=== PATIENT | female | born 1995 | race Caucasian/White ===

== ENCOUNTER 2017-02-21 11:50 | Emergency (ER) | payer OTHER ==
[~2017-02-21] VITALS: Ht 177.8 cm; Wt 140.0 kg
[2017-02-21 11:59] VITALS: TEMP 36.8; Ht 177.8 cm; Wt 140.0 kg
--- NOTE | 2017-02-21 12:28 | EMERGENCY ROOM VISIT NOTE ---
History Report prepared by Mark: Whitney Newman Under the Supervision of: Arpit LambertO. First contact with patient: 11:47 Chief Complaint: SEIZURE Stated Complaint: Seizures Nursing Triage Summary: Seizures Tuesday, yesterday, today. Approximately 5 today with a ground level fall. Bumped head on Tuesday as well. No seizure witnessed by EMS during care. History of Present Illness The patient is a 21 year old female who presents to the Emergency Room with complaints of an episode of a seizure occurring [employer]ODUCT [employer]. The patient is currently in the [facility]. She had a seizure today that was witnessed by staff. They note that it was a generalized seizure that lasted for about 1-2 minutes. When EMS arrived, the patient was post-ictal but starting to answer questions. She had no aura or prodromal symptoms prior to her seizure. No known triggers for her seizures. The patient has a history of seizures and is currently taking two seizure medications. There was discussion of also adding Keppra. She is unsure if there is a family history of seizures. According to staff, the patient has been having seizures for the past 2 days. The patient denies any recent illness and any current pain. She has a small contusion on her forehead from where she hit her head 2 days ago. Pt denies headache, change in vision, fevers, chest pain, shortness of breath, nausea, vomiting, diarrhea, pain with urination, and melena. Source of History: patient, EMS, other ([facility] staff) Onset: PRODUCT HANDLER Position: other (global) Quality: other (seizure) Timing: other (episode) Modifying Factors (Relieving): other (time) Associated Symptoms: No fevers, No headache, No chest pain, No SOB, No nausea, No vomiting, No melena, No diarrhea, No urinary symptoms Review of Systems See HPI for pertinent positives & negatives. A total of 10 systems reviewed and were otherwise negative. Past Medical & Surgical Medical Problems: (1) Seizure disorder Family History No pertinent history stated. Social History Smoking Status: Never Smoker Housing Status: other ([facility]) Current/Historical Medications Scheduled Divalproex Sodium (Depakote Er), 500 MG PO BID Divalproex Sodium (Depakote Delay Rel), 250 MG PO DAILY Fluoxetine (Prozac), 40 MG PO QPM Levetiracetam (Keppra), 1 TAB PO BID Lisinopril (Lisinopril), 5 MG PO DAILY Propranolol (Inderal), 10 MG PO TID Topiramate (Topiramate ER), 200 MG PO BID Scheduled PRN Acetaminophen Tab (Tylenol), 650 MG PO BID PRN for Pain Miscellaneous Medications Bacitracin (Topical) (Bacitracin) Allergies Coded Allergies: No Known Allergies (Unverified , 02/21/17) Physical Exam Vital Signs Date Time Temp Pulse Resp B/P (MAP) Pulse Ox O2 Delivery O2 Flow Rate FiO2 02/21/17 18:56 111 12 131/109 97 02/21/17 18:32 82 12 144/88 96 Room Air 02/21/17 18:06 85 99 02/21/17 18:01 157/87 02/21/17 17:36 81 17 100 02/21/17 17:31 87 15 140/89 99 02/21/17 17:06 84 24 100 02/21/17 17:01 155/90 02/21/17 16:36 79 16 99 02/21/17 16:31 155/82 02/21/17 16:22 83 02/21/17 16:06 83 13 100 02/21/17 16:01 140/75 02/21/17 15:50 80 16 100 02/21/17 15:31 111/84 02/21/17 15:30 75 16 111/84 98 Room Air 02/21/17 15:20 85 16 100 02/21/17 15:05 77 18 122/82 97 Room Air 02/21/17 15:01 122/82 02/21/17 14:50 84 19 97 02/21/17 14:47 98 Room Air 02/21/17 14:43 144/84 02/21/17 14:35 84 18 144/84 100 Room Air 02/21/17 13:50 79 18 100 02/21/17 13:20 84 19 99 02/21/17 13:02 137/75 02/21/17 12:20 83 12 100 02/21/17 12:13 90 02/21/17 11:59 36.8 85 19 136/72 98 Room Air 02/21/17 11:55 136/72 Physical Exam GENERAL: alert, well appearing, well nourished, no distress, non-toxic, obese HEAD: Small area of swelling central forehead, no ecchymosis. EYE EXAM: normal conjunctiva, PERRL and EOM's grossly intact OROPHARYNX: no exudate, no erythema, lips, buccal mucosa, and tongue normal and mucous membranes are moist, no contusion to tongue NECK: supple, no nuchal rigidity, no adenopathy, non-tender LUNGS: Clear to auscultation. Normal chest wall mechanics HEART: no murmurs, S1 normal and S2 normal ABDOMEN: abdomen soft, non-tender, normo-active bowel sounds, no masses, no rebound or guarding. BACK: Back is symmetrical on inspection and there is no deformity, no midline tenderness, no CVA tenderness. SKIN: no rashes and no bruising UPPER EXTREMITIES: Bilateral upper extremities with well-healed scars consistent with self-inflicted cutting. LOWER EXTREMITIES: No pitting edema. NEURO EXAM: Normal sensorium, cranial nerves II-XII [grossly] intact, normal speech, no [gross] weakness of arms, no [gross] weakness of legs. [No drift. Finger to nose intact. Gross sensation intact.] Medical Decision & Procedures ER Provider Diagnostic Interpretation: Radiology results have been interpreted by the radiologist and reviewed by me. HEAD CT NONCONTRAST CT DOSE: 1577.26 mGycm HISTORY: Seizure chi, seizure TECHNIQUE: Multiaxial CT images of the head were performed without the use of intravenous contrast. Comparison: None. Findings: The study is near nondiagnostic due to patient motion. Severe motion artifact is present on all images despite attempted rescan. No evidence for acute intracranial hemorrhage. No major midline shift. Impression: Nondiagnostic scan as the patient could not remain motionless for the study. No evidence for intracranial hemorrhage. Additional detail is not possible again due to patient motion. Study should be repeated when the patient is able Electronically signed by: Elliott Rivas M.D. 02/21/2017 1:02 PM Dictated Date/Time: 02/21/2017 1:00 PM CHEST ONE VIEW PORTABLE CLINICAL HISTORY: seizure, vomited COMPARISON STUDY: No previous studies for comparison. FINDINGS: The bones soft tissues and hemidiaphragms are normal. The cardiomediastinal silhouette is normal. The lungs are clear. The pulmonary vasculature is normal. IMPRESSION: Negative chest. Electronically signed by: Elliott Rivas M.D. 02/21/2017 12:36 PM Dictated Date/Time: 02/21/2017 12:35 PM Laboratory Results 02/21/17 13:25 Red Blood Count 5.11, Mean Corpuscular Volume 78.3, Mean Corpuscular Hemoglobin 24.5, Mean Corpuscular Hemoglobin Concent 31.3, Mean Platelet Volume 8.7, Neutrophils (%) (Auto) 74.4, Lymphocytes (%) (Auto) 18.6, Monocytes (%) (Auto) 6.1, Eosinophils (%) (Auto) 0.5, Basophils (%) (Auto) 0.2, Neutrophils # (Auto) 6.29, Lymphocytes # (Auto) 1.57, Monocytes # (Auto) 0.52, Eosinophils # (Auto) 0.04, Basophils # (Auto) 0.02 02/21/17 13:25 Test 02/21/17 12:19 02/21/17 13:25 02/21/17 14:40 Bedside Glucose 103 mg/dl (70-90) White Blood Count 8.46 K/uL (4.8-10.8) Red Blood Count 5.11 M/uL (4.2-5.4) Hemoglobin 12.5 g/dL (12.0-16.0) Hematocrit 40.0 % (37-47) Mean Corpuscular Volume 78.3 fL (80-100) Mean Corpuscular Hemoglobin 24.5 pg (25-34) Mean Corpuscular Hemoglobin Concent 31.3 g/dl (32-36) Platelet Count 364 K/uL (130-400) Mean Platelet Volume 8.7 fL (7.4-10.4) Neutrophils (%) (Auto) 74.4 % Lymphocytes (%) (Auto) 18.6 % Monocytes (%) (Auto) 6.1 % Eosinophils (%) (Auto) 0.5 % Basophils (%) (Auto) 0.2 % Neutrophils # (Auto) 6.29 K/uL (1.4-6.5) Lymphocytes # (Auto) 1.57 K/uL (1.2-3.4) Monocytes # (Auto) 0.52 K/uL (0.11-0.59) Eosinophils # (Auto) 0.04 K/uL (0-0.5) Basophils # (Auto) 0.02 K/uL (0-0.2) RDW Standard Deviation 43.1 fL (36.4-46.3) RDW Coefficient of Variation 15.0 % (11.5-14.5) Immature Granulocyte % (Auto) 0.2 % Immature Granulocyte # (Auto) 0.02 K/uL (0.00-0.02) Anion Gap 14.0 mmol/L (3-11) Est Creatinine Clear Calc Drug Dose 142.4 ml/min Estimated GFR () 98.5 Estimated GFR (Non- 85.0 BUN/Creatinine Ratio 14.7 (10-20) Calcium Level 9.0 mg/dl (8.5-10.1) Magnesium Level 2.3 mg/dl (1.8-2.4) Total Bilirubin 0.3 mg/dl (0.2-1) Aspartate Amino Transf (AST/SGOT) 31 U/L (15-37) Alanine Aminotransferase (ALT/SGPT) 71 U/L (12-78) Alkaline Phosphatase 92 U/L (45-117) Total Protein 8.0 gm/dl (6.4-8.2) Albumin 3.8 gm/dl (3.4-5.0) Globulin 4.2 gm/dl (2.5-4.0) Albumin/Globulin Ratio 0.9 (0.9-2) Human Chorionic Gonadotropin, Quant < 1 mIU/mL Valproic Acid (Depakene) Level 89 mcg/ml (50-100) Urine Color DK YELLOW Urine Appearance TURBID (CLEAR) Urine pH 8.0 (4.5-7.5) Urine Specific [place] 1.031 (1.000-1.030) Urine Protein NEG (NEG) Urine Glucose (UA) NEG (NEG) Urine Ketones 1+ (NEG) Urine Occult Blood 3+ (NEG) Urine Nitrite NEG (NEG) Urine Bilirubin NEG (NEG) Urine Urobilinogen NEG (NEG) Urine Leukocyte Esterase NEG (NEG) Urine WBC (Auto) 1-5 /hpf (0-5) Urine RBC (Auto) >30 /hpf (0-4) Urine Hyaline Casts (Auto) 1-5 /lpf (0-5) Urine Epithelial Cells (Auto) >30 /lpf (0-5) Urine Bacteria (Auto) 4+ (NEG) Laboratory results per my review. Medications Administered Medications (Trade) Dose Ordered Sig/David Route Start Time Stop Time Status Last Admin Dose Admin Lorazepam (Ativan Inj) 1 mg NOW STAT IV 02/21/17 13:04 02/21/17 13:05 DC 02/21/17 13:17 1 MG Levetiracetam 1000 mg/Dextrose 110 ml @ 440 mls/hr ONE ONCE IV 02/21/17 16:45 02/21/17 16:59 DC 02/21/17 17:30 440 MLS/HR ECG Indication: other (seizure) Rate (beats per minute): 85 Rhythm: normal sinus Findings: no acute ischemic change, other (normal axis, normal intervals) ED Course 1147: The patient was evaluated in room A9B. A complete history and physical exam was performed. 1302: I was called to the room. The patient had a seizure in CT scan and had seizure-like activity when she was brought back to her room. 1304: Lorazepam 1 mg IV 1431: The patient was being helped to the bathroom and began to have a seizure. She was lowered to the ground by staff - no trauma. This lasted for about 30 seconds. The patient was post-ictal for several minutes and then began to arouse again. 1525: I tried to contact the [facility] for the second time. 1540: I reassessed the patient at this time. She is doing fine and has had no recurrent seizures. 1542: I spoke with the [facility] regarding the patient's seizure history. Staff states that the patient's last seizure was at the beginning of January after they tried to wean her off of her Topamax. She stayed on this medication and had no problems since. She has previously refused to take her medications. 1606: At this time I spoke with the [facility] nurse at the [facility]. We discussed the patient's case and she is going to call the on-call doctor and discuss Keppra. The nurse states that the patient has not been refusing her medications. They are suspicious that the seizures are stress-induced because they have occurred on multiple occasions after she has met with her counselor. 1630: Funmilayo, the [facility] nurse called back. She states that the doctor is okay with starting Keppra and they will schedule follow-up with a neurologist. 1645: Levetiracetam 1000 mg/Dextrose 110 ml @ 440 mls/hr IV 1820: I reassessed the patient at this time. She is feeling better and resting comfortably. I discussed the results and treatment plan with the patient. I answered all pertaining questions that she had. She expressed understanding and verbalized agreement. The patient will be discharged back to the [facility]. Medical Decision Differential diagnosis includes etiologies such as infection, hypoglycemia, electrolyte abnormalities, cardiac sources, intracerebral event, trauma, toxicologic, neurologic, as well as others were entertained. Medication Reconciliation: I attest that I have personally reviewed the patient' s current medication list. Blood pressure screening: Patient was found to have a slightly elevated blood pressure due to circumstances. I do not believe that the patient requires hypertension monitoring. Patient with known seizure history, although recent events leading to increased stress likely contribute into seizures. Question possible pseudoseizures also. No history, symptoms, lab findings to suggest meningitis/encephalitis, no evidence of intracranial hemorrhage, patient with normal and nonfocal neuro exam , doubt CVA, no prior history of close head injury. No other abnormalities noted, and Depakote level within normal range. After several discussions with [facility] regarding seizures while she was in their care, as well as [facility], decision made to add an additional anticonvulsant agent. The physician at the [facility] was comfortable with the initiation of this, and will follow-up the patient and they will arrange outpatient neurology evaluation. Discussion with ED pharmacist regarding safest anticonvulsant, and I agree Keppra is likely the best choice in this circumstance. Patient's other labs are reassuring. Patient did have one recurrent seizure noted in the emergency room, was being helped into the bathroom by staff, when she began to seize, staff carefully lowered her to the ground, avoiding any additional traumatic injury. Seizure resolved within 30 seconds, was generalized in nature, patient was briefly postictal and return to normal baseline. Did not feel patient required ICU admission for status epilepticus or continuous EEG monitoring. No evidence of acute infectious process. Hematuria noted likely contaminant from menstrual cycle. Patient monitored her for several hours, including time after the initiation of IV Keppra. Patient with no other abnormalities, stable vital signs throughout. Mild hypertension noted, doubt seizures related to hypertensive emergency or hypertensive encephalopathy. Consults Time Called: 1430 Consulting Physician: Staff at the [facility] Returned Call: 1542 I spoke with the [facility] regarding the patient's seizure history. Staff states that the patient's last seizure was at the beginning of January after they tried to wean her off of her Topamax. She stayed on this medication and had no problems since. She has previously refused to take her medications. Additional Consults: Time Called: 1539 Consulted Physician: [facility] nurse Returned Call: 1606 Additional Comments: At this time I spoke with the [facility] nurse, Funmilayo, at the [facility]. We discussed the patient's case and she is going to call the on-call doctor and discuss Keppra. The nurse states that the patient has not been refusing her medications. They are suspicious that the seizures are stress-induced because they have occurred on multiple occasions after she has met with her counselor. Time Called: 1630 Consulted Physician: Funmilayo - [facility] nurse Returned Call: 1630 Additional Comments: Funmilayo, the [facility] nurse called back. She states that the doctor is okay with starting Keppra and they will schedule follow-up with a neurologist. Impression Primary Impression: Recurrent seizures Critical Care I have personally spent 45 minutes of critical care time in the direct management of this patient. This includes bedside care, interpretation of diagnostic studies, and testing, discussion with consultants, patient, and family members, and other required patient management activities. This 45 minutes is in excess of all separately billable procedures. Scribe Attestation The scribe's documentation has been prepared under my direction and personally reviewed by me in its entirety. I confirm that the note above accurately reflects all work, treatment, procedures, and medical decision making performed by me. Departure Information Dispostion Home / Self-Care Prescriptions Levetiracetam (KEPPRA) 500 Mg Tab 1 TAB PO BID for 30 Days, #60 TAB 5 Refills Prov: Melissa Martinez DO 02/21/17 Referrals [facility] (PCP) Forms HOME CARE DOCUMENTATION FORM, IMPORTANT VISIT INFORMATION Patient Instructions My [facility] Additional Instructions Please continue taking your regular seizure medications as prescribed. Please begin taking the Keppra also. Please take the Keppra twice a day as prescribed. Please follow up with neurology regarding the recurrence of her seizures and possible need for additional testing or adjustment of medications. Please eat and drink regularly. If you develop any recurrent seizures, follow -up fevers, vomiting, vision changes, dizziness, or have any other new or concerning symptoms, please return to the emergency room.
[2017-02-21] MEDS ORDERED: BACI1POW (12:29)
[2017-02-21] MEDS ORDERED: TOPI1CAP20 PO (12:29)
[2017-02-21] MEDS ORDERED: DIVA250T PO (12:29)
--- NOTE | 2017-02-21 12:37 | DIAGNOSTIC IMAGING REPORT ---
CHEST ONE VIEW PORTABLE CLINICAL HISTORY: seizure, vomited COMPARISON STUDY: No previous studies for comparison. FINDINGS: The bones soft tissues and hemidiaphragms are normal. The cardiomediastinal silhouette is normal. The lungs are clear. The pulmonary vasculature is normal. IMPRESSION: Negative chest. Electronically signed by: Elliott Rivas M.D. 02/21/2017 12:36 PM Dictated Date/Time: 02/21/2017 12:35 PM
--- NOTE | 2017-02-21 13:03 | DIAGNOSTIC IMAGING REPORT ---
HEAD CT NONCONTRAST CT DOSE: 1577.26 mGycm HISTORY: Seizure chi, seizure TECHNIQUE: Multiaxial CT images of the head were performed without the use of intravenous contrast. Comparison: None. Findings: The study is near nondiagnostic due to patient motion. Severe motion artifact is present on all images despite attempted rescan. No evidence for acute intracranial hemorrhage. No major midline shift. Impression: Nondiagnostic scan as the patient could not remain motionless for the study. No evidence for intracranial hemorrhage. Additional detail is not possible again due to patient motion. Study should be repeated when the patient is able Electronically signed by: Elliott Rivas M.D. 02/21/2017 1:02 PM Dictated Date/Time: 02/21/2017 1:00 PM
[2017-02-21] MEDS ORDERED: LORAZEPAM 2 MG/ML 1 ML VIAL IV STA (13:04)
[2017-02-21 13:44] LABS: BASO % 0.2 %; BASO ABS # 0.02 K/uL (0-0.2); COMPLETE YES; EOS % 0.5 %; IG% 0.2 %; LYMPH % 18.6 %; LYMPH ABS # 1.57 K/uL (1.2-3.4); MEAN CELL VOLUME 78.3 fL (80-100); MEAN CORPUSCULAR HEMOGLOBIN 24.5 pg (25-34); MEAN CORPUSCULAR HGB CONC 31.3 g/dl (32-36); MEAN PLATELET VOLUME 8.7 fL (7.4-10.4); MONO % 6.1 %; NEUT % 74.4 %; PLATELET COUNT 364 K/uL (130-400); RED BLOOD COUNT 5.11 M/uL (4.2-5.4); WHITE BLOOD COUNT 8.46 K/uL (4.8-10.8)
[2017-02-21 13:57] LABS: BUN/CREATININE RATIO 14.7 (10-20); CREATININE 0.95 mg/dl (0.60-1.20); MAGNESIUM 2.3 mg/dl (1.8-2.4); POTASSIUM 3.8 mmol/L (3.5-5.1)
[2017-02-21 14:00] LABS: ALB/GLOB RATIO 0.9 (0.9-2)
[2017-02-21 14:47] VITALS: O2SAT 98
[2017-02-21 14:56] LABS: URINE APPEARANCE TURBID (CLEAR); URINE BILIRUBIN NEG (NEG); URINE COLOR DK YELLOW; URINE EPITHELIAL CELL AUTO >30 /lpf (0-5); URINE NITRITE NEG (NEG); URINE SPECIFIC GRAVITY 1.031 (1.000-1.030); UROBILINOGEN NEG (NEG); ZZUR CULT IF INDIC CLEAN CATCH YES
[2017-02-21 15:08] LABS: MANUAL MICROSCOPIC REQUIRED? NO; REVIEW REQ? NO; SULFASALICYLIC ACID NEG (NEG)
[2017-02-21] MEDS ORDERED: LEVETIRACETAM IV 1,000 MG in DEXTROSE 5% 100ML 100 ML IV ONE (16:45)
[2017-02-21] MEDS ORDERED: LEVE500T13 PO (18:48)
[2017-02-21 18:56] VITALS: BP 131/109; PULSE 111; O2SAT 97
[2017-03-06] MEDS ORDERED: DIVA500T5 PO (09:27)
[2017-03-06] MEDS ORDERED: LEVE500T13 PO (11:33)
[2017-03-06] MEDS ORDERED: TOPI200T14 PO (11:34)
[2017-03-06] MEDS ORDERED: MIRT15TA PO (11:36)
[2017-03-06] MEDS ORDERED: ACET325T96 PO (12:29)
[2017-03-06] MEDS ORDERED: LSN5 PO (12:29)
[2017-03-06] MEDS ORDERED: DIVA250T4 PO (12:29)
[2017-03-06] MEDS ORDERED: PROP10TA7 PO (12:29)
[2017-03-06] MEDS ORDERED: FLUO40CA8 PO (12:29)
[2017-03-06] MEDS ORDERED: SULF800T23 PO (19:08)
== END 2017-02-21 18:57 | disposition home or self-care (01) ==
LOC: C.EDA 11:56
DX: G40.909 Epilepsy, unspecified, not intractable, without status epilepticus (principal)

== ENCOUNTER 2017-02-22 11:10 | Inpatient (IN) | payer OTHER ==
[~2017-02-22] VITALS: Ht 177.8 cm; Wt 138.2 kg
[~2017-02-22 11:10] MED LIST: BACI1POW; DIVA250T PO; LEVE500T13 PO; TOPI1CAP20 PO
[2017-02-22 12:07] LABS: BASO % 0.1 %; BASO ABS # 0.01 K/uL (0-0.2); COMPLETE YES; EOS % 0.8 %; HEMATOCRIT 38.8 % (37-47); IG% 0.3 %; LYMPH ABS # 1.95 K/uL (1.2-3.4); MEAN CELL VOLUME 80.3 fL (80-100); MEAN CORPUSCULAR HEMOGLOBIN 25.5 pg (25-34); MEAN CORPUSCULAR HGB CONC 31.7 g/dl (32-36); MEAN PLATELET VOLUME 9.1 fL (7.4-10.4); MONO % 9.6 %; NEUT % 63.2 %; PLATELET COUNT 321 K/uL (130-400); RED BLOOD COUNT 4.83 M/uL (4.2-5.4)
[2017-02-22 12:17] LABS: INR 1.1 (0.9-1.1); PROTHROMBIN TIME (PATIENT) 11.5 SECONDS (9.0-12.0)
[2017-02-22 12:25] LABS: BUN/CREATININE RATIO 16.6 (10-20); CALCIUM 8.4 mg/dl (8.5-10.1); CREATININE 0.81 mg/dl (0.60-1.20); MAGNESIUM 2.3 mg/dl (1.8-2.4); POTASSIUM 3.5 mmol/L (3.5-5.1)
[2017-02-22] MEDS ORDERED: LORAZEPAM 2 MG/ML 1 ML VIAL ONE (12:29)
[2017-02-22] MEDS ORDERED: LORAZEPAM 2 MG/ML 1 ML VIAL IV STA (12:34)
[2017-02-22 12:36] LABS: PHOSPHORUS 2.4 mg/dl (2.5-4.9); THYROID STIMULATING HORMONE 0.367 uIu/ml (0.300-4.500)
--- NOTE | 2017-02-22 12:37 | DIAGNOSTIC IMAGING REPORT ---
HEAD CT NONCONTRAST CT DOSE: HISTORY: Trauma. Mental status change. fall, chi, seizure TECHNIQUE: Multiaxial CT images of the head were performed without the use of intravenous contrast. Comparison: 02/21/2017 Findings: The paranasal sinuses and mastoid air cells are clear. The calvarium and skull base are intact. The ventricles and sulci are within normal limits. There is no mass, hematoma, midline shift, or acute infarct. Impression: No acute intracranial abnormality. Electronically signed by: Elliott Rivas M.D. 02/22/2017 12:35 PM Dictated Date/Time: 02/22/2017 12:33 PM
--- NOTE | 2017-02-22 12:40 | DIAGNOSTIC IMAGING REPORT ---
CERVICAL SPINE CT CT DOSE: 1311.49 mGy.cm HISTORY: fall, loc, seizure TECHNIQUE: Multiaxial CT images of the cervical spine were performed and reformatted in the sagittal and coronal plane without the use of contrast. COMPARISON: None. FINDINGS: No fractures. No subluxation. Prevertebral soft tissues and the C1-C2 interval are intact. No pneumothorax. IMPRESSION: No fractures within the cervical spine. Electronically signed by: Elliott Rivas M.D. 02/22/2017 12:39 PM Dictated Date/Time: 02/22/2017 12:37 PM
[2017-02-22] MEDS ORDERED: LEVETIRACETAM IV 1,000 MG in DEXTROSE 5% 100ML 100 ML IV ONE (12:45)
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
[2017-02-22] MEDS ORDERED: NITROGLYCERIN 0.4 MG SL PER TAB CHARGE SL PRN (15:00)
[2017-02-22] MEDS ORDERED: ONDANSETRON INJ 2 MG/ML 2 ML VIAL IV PRN (15:00)
[2017-02-22] MEDS ORDERED: MAGNESIUM HYDROXIDE SUSP 30 ML UDC PO PRN (15:00)
[2017-02-22] MEDS ORDERED: ALUMINUM/MAGNESIUM/SIMETH (MAALOX MAX) 30 ML UDC PO PRN (15:00)
[2017-02-22] MEDS ORDERED: POLYETHYLENE (MIRALAX) 17 GM PACK PO PRN (15:00)
[2017-02-22 15:20] VITALS: BP 123/78; PULSE 79; TEMP 36.6; O2SAT 99; Ht 177.8 cm; Wt 138.2 kg
[2017-02-22 15:30] LABS: MANUAL MICROSCOPIC REQUIRED? NO; REVIEW REQ? YES; URINE APPEARANCE TURBID (CLEAR); URINE BILIRUBIN NEG (NEG); URINE COLOR YELLOW; URINE EPITHELIAL CELL AUTO >30 /lpf (0-5); URINE NITRITE NEG (NEG); URINE PH 8.5 (4.5-7.5); URINE SPECIFIC GRAVITY 1.027 (1.000-1.030); UROBILINOGEN NEG (NEG)
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
[2017-02-22 15:36] LABS: SULFASALICYLIC ACID NEG (NEG)
[2017-02-22 20:58] VITALS: BP 132/90; PULSE 96; TEMP 36.9; O2SAT 96
[2017-02-22] MEDS ORDERED: DIVALPROEX 250 MG EXTENDED REL TAB PO SCH (21:00)
[2017-02-22] MEDS ORDERED: LEVETIRACETAM 500 MG TAB PO SCH (21:00)
[2017-02-22] MEDS ORDERED: NURSING VERBAL MED ORDER STA (21:29)
[2017-02-22] MEDS ORDERED: LEVETIRACTAM 500 MG in DEXTROSE 5% 100ML IV STA (21:37)
[2017-02-22 21:42] VITALS: BP 145/79; PULSE 108; O2SAT 100
[2017-02-22 22:02] VITALS: BP 93/69; PULSE 82; O2SAT 99
[2017-02-22] MEDS: PROPRANOLOL HCL 10 MG TAB PO SCH (22:19)
[2017-02-22] MEDS: FLUOXETINE HCL 20 MG CAP PO SCH (22:20)
[2017-02-22] MEDS: TOPIRAMATE 100 MG TAB PO SCH (22:21)
[2017-02-22] MEDS: MIRTAZAPINE TAB 15 MG TAB PO SCH (22:21)
[2017-02-22 23:44] VITALS: BP 109/90; PULSE 86; O2SAT 99
[2017-02-23] VITALS (10 sets, daily range): BP systolic 127–142; BP diastolic 62–98; PULSE 78–103; TEMP 36.7–37.2; O2SAT 99–100
[2017-02-23] MEDS ORDERED: VALPROATE SOD IV 500 MG in DEXTROSE 5% 50ML 50 ML IV ONE (00:03)
[2017-02-23] MEDS: ENOXAPARIN 40 MG/0.4 ML SYR SC SCH ×2 (00:09→23:25)
[2017-02-23] MEDS ORDERED: LORAZEPAM 2 MG/ML 1 ML VIAL ONE (00:24)
[2017-02-23 06:18] LABS: BUN/CREATININE RATIO 18.5 (10-20); CALCIUM 8.7 mg/dl (8.5-10.1); CREATININE 0.66 mg/dl (0.60-1.20)
[2017-02-23] MEDS: LORAZEPAM 2 MG/ML 1 ML VIAL IV PRN ×5 (06:20→19:41)
[2017-02-23] MEDS: VALPROATE SOD IV 500 MG in DEXTROSE 5% 50ML 50 ML IV SCH ×2 (07:29→19:43)
[2017-02-23] MEDS: LISINOPRIL 5 MG TAB PO SCH (07:31)
[2017-02-23] MEDS: PROPRANOLOL HCL 10 MG TAB PO SCH ×3 (07:32→23:50)
[2017-02-23] MEDS: TOPIRAMATE 100 MG TAB PO SCH ×2 (07:33→23:50)
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
[2017-02-23] MEDS ORDERED: LEVETIRACTAM 500 MG in DEXTROSE 5% 100ML IV SCH (09:00)
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
[2017-02-23] MEDS: DIVALPROEX SODIUM 250 MG DELAY REL TAB PO SCH (12:37)
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
[2017-02-23] MEDS: LEVETIRACETAM IV 1,000 MG in DEXTROSE 5% 100ML 100 ML IV SCH (19:43)
[2017-02-23] MEDS: FLUOXETINE HCL 20 MG CAP PO SCH (23:50)
[2017-02-23] MEDS: MIRTAZAPINE TAB 15 MG TAB PO SCH (23:50)
[2017-02-24] VITALS (7 sets, daily range): BP systolic 116–129; BP diastolic 63–74; PULSE 85–96; TEMP 36.6–37.1; O2SAT 98–100
--- NOTE | 2017-02-24 07:06 | Family Medicine Progress Note ---
Progress Note Date of Service Feb 24, 2017. Subjective Pt evaluation today including: conversation w/ patient, physical exam, chart review, lab review Pt was seen and examined at bedside. Pt had an event of nonresponsiveness at approximately 9am with right arm shaking that lasted for approximately two minutes that self resolved. Ativan was not given. No aspiration was noted. No vomiting was noted. Extremities are not stiff during these episodes. There is a post ictal state lasting approximately 30 minutes where the pt is not answering questions. Pt is more sedated at her baseline than her previous day. ROS: Pt states that she is pain in her feet, entire body and teeth. Complete ROS is unable to be obtained due to patient being sedated. pt does not appear in any pain. Objective Physical Exam General Appearance: WD/WN, + obese Respiratory/Chest: chest non-tender, lungs clear, normal breath sounds, no respiratory distress, no accessory muscle use Cardiovascular: regular rate, rhythm, no edema, no gallop, no JVD, no murmur Extremities: non-tender, normal inspection, no pedal edema, no calf tenderness Neurologic/Psychiatric: no motor/sensory deficits, alert, oriented x 3, + pertinent finding (pt appears sedated) Assessment and Plan 21F with PMHx of seizure disorder, HTN, and depression, who presented to the ED from [facility] with complaints of seizure-like activity over the last couple of days. Pt seized several times in the hospital and was given Ativan. Keppra was doubled to 1000 IV BID, Depakote was increased to 500mg BID and Topamax was maintained at 200mg BID. Pt has continued to have seizures or pseudoseizures here and has refused EEG monitoring. Will retry after 24hours and if continues to seize then will consider upgrading to tertiary care facility. Seizure-like activity, pseudoseizure vs seizure disorder: - Tele showed sinus rhythm in the 130s. Afebrile. No WBC. TSH normal. CT head unremarkable. - Seizure precautions. - c/w Depakote IV 500 mg BID, Keppra IV 1000 mg BID, Topamax 200 mg BID - Valproic acid checked on - Neurology consulted, appreciate recommendations --Will retry for routine EEG. - If this patient continues to exhibit seizure-like activity then I would recommend transfer to a tertiary center for prolonged EEG monitoring and comprehensive neuro critical care services. - Follow up with brain MRI Anxiety/depression w/ suicidal attempt in the last 24-hours: - Suicidal watch - Continue Prozac 40 mg HS, Remeron 15 mg HS, Propranolol 10 mg TID - Psych on board. HTN: Continue Lisinopril 5 mg daily GI Prophylaxis: Maalox PRN, IV Zofran PRN, Colace and/or Milk of Mag PRN DVT prophylaxis: Lovenox 40 mg SQ q24 hrs, SIDNEY and SCDs Code Status: Full Code Dispo: From [facility] Resident Physician Supervision Note: I interviewed and examined the patient. Discussed with Dr. Rivers and agree with findings and plan as documented in the note. Any exceptions or clarifications are listed here: None Documented By: Cong Finney no meaningful HPI or ROS obtainable. had a few episodes earlier - some self resolved. d/w psych extensively and input greatly appreciated. neuro sugggested ?could we do continuous EEG here due to getting equipment for code [place]ctic (as opposed to the stress and starting over ih rapport of having to transfer her to a facility with EEG/video monitoring) -- unfortunately training not yet ready for full use of equipment so not able to be done. vitals noted nad breathing unlabored no pallor or icterus seizure like activity - seeming more and more to be pseudoseizures, but with overall clinical situation would be beneficial to "prove" rather than just empirically treat. ?transfer to tertiary vs try to arrange as outpt. will d/w group home doc and also discuss further w neuro. continue to monitor episodes and follow for now. fortunately no serious sequellae appear ongoing Resident Involvement: Resident Care Provided Care Provided: Adult Hospital Medicine
[2017-02-24 07:14] LABS: BUN/CREATININE RATIO 13.9 (10-20); CALCIUM 8.4 mg/dl (8.5-10.1); CREATININE 0.7 mg/dl (0.60-1.20); POTASSIUM 3.8 mmol/L (3.5-5.1)
[2017-02-24 07:20] LABS: HEMATOCRIT 41.1 % (37-47); MEAN CELL VOLUME 79.7 fL (80-100); MEAN CORPUSCULAR HGB CONC 31.4 g/dl (32-36); MEAN PLATELET VOLUME 9.3 fL (7.4-10.4); PLATELET COUNT 313 K/uL (130-400); RED BLOOD COUNT 5.16 M/uL (4.2-5.4); WHITE BLOOD COUNT 11.74 K/uL (4.8-10.8)
[2017-02-24] MEDS: LEVETIRACETAM IV 1,000 MG in DEXTROSE 5% 100ML 100 ML IV SCH ×2 (08:23→20:49)
[2017-02-24] MEDS: TOPIRAMATE 100 MG TAB PO SCH ×2 (08:25→20:42)
[2017-02-24] MEDS: LISINOPRIL 5 MG TAB PO SCH (08:25)
[2017-02-24] MEDS: VALPROATE SOD IV 500 MG in DEXTROSE 5% 50ML 50 ML IV SCH ×2 (08:25→20:49)
[2017-02-24] MEDS: PROPRANOLOL HCL 10 MG TAB PO SCH ×3 (08:26→20:42)
--- NOTE | 2017-02-24 09:55 | Neurology Progress Notes ---
Neurology Progress Note Date of Service Feb 24, 2017. Subjective Follow-up for seizures The patient is somnolent this morning it does not participate with my evaluation Nursing notes reviewed. The patient has exhibited at least 2 additional seizure- like episodes characterized by back arching, thrashing of the limbs, and movement of the head to and fro She has not answered questions by nursing staff this morning, apparently being difficult to arouse from sleep. She did receive multiple doses of lorazepam yesterday and last night. This patient's dosage of Keppra was increased to 1000 mg twice daily yesterday. Objective Date Time Temp Pulse Resp B/P (MAP) Pulse Ox O2 Delivery O2 Flow Rate FiO2 02/24/17 07:43 36.9 96 20 116/70 (85) 100 Room Air 02/24/17 06:12 117/68 (84) 02/24/17 04:00 Nasal Cannula 2.0 02/24/17 04:00 90 18 100 Nasal Cannula 2.0 02/24/17 00:00 Nasal Cannula 2.0 02/23/17 23:21 37.0 103 16 132/75 (94) 100 Nasal Cannula 2.0 02/23/17 20:00 Nasal Cannula 2.0 02/23/17 19:30 102 22 127/98 (108) 100 Nasal Cannula 2.0 02/23/17 19:13 37.2 92 18 133/77 (95) 99 Nasal Cannula 2.0 02/23/17 16:00 Nasal Cannula 2.0 02/23/17 15:15 36.8 87 19 130/62 (84) 99 Nasal Cannula 2.0 02/23/17 12:00 Nasal Cannula 2.0 02/23/17 11:39 36.7 80 22 140/81 (100) 100 Nasal Cannula 2.0 Last 24 Hours Test 02/23/17 10:30 02/23/17 12:33 02/24/17 06:10 Total Creatine Kinase 98 U/L Valproic Acid (Depakene) Level 81 mcg/ml White Blood Count 11.74 K/uL Red Blood Count 5.16 M/uL Hemoglobin 12.9 g/dL Hematocrit 41.1 % Mean Corpuscular Volume 79.7 fL Mean Corpuscular Hemoglobin 25.0 pg Mean Corpuscular Hemoglobin Concent 31.4 g/dl RDW Standard Deviation 44.6 fL RDW Coefficient of Variation 15.4 % Platelet Count 313 K/uL Mean Platelet Volume 9.3 fL Sodium Level 144 mmol/L Potassium Level 3.8 mmol/L Chloride Level 111 mmol/L Carbon Dioxide Level 23 mmol/L Anion Gap 10.0 mmol/L Blood Urea Nitrogen 10 mg/dl Creatinine 0.70 mg/dl Est Creatinine Clear Calc Drug Dose 192.3 ml/min Estimated GFR () 142.5 Estimated GFR (Non- 123.0 BUN/Creatinine Ratio 13.9 Random Glucose 76 mg/dl Calcium Level 8.4 mg/dl Exam: The patient is sonorous and difficult to arouse from sleep. She will not participate with examination. Current Inpatient Medications Medications (Trade) Dose Ordered Sig/David Route Start Time Stop Time Status Last Admin Dose Admin Enoxaparin Sodium (Lovenox Inj) 40 mg Q24H SC 02/22/17 21:00 03/24/17 20:59 02/23/17 23:25 40 MG Acetaminophen (Tylenol Tab) 650 mg Q4H PRN PO 02/22/17 15:00 03/24/17 14:59 Al Hydrox/Mg Hydrox/Simethicone (Maalox Max Susp) 15 ml Q4H PRN PO 02/22/17 15:00 03/24/17 14:59 Magnesium Hydroxide (Milk Of Magnesia Susp) 30 ml Q12H PRN PO 02/22/17 15:00 03/24/17 14:59 Ondansetron HCl (Zofran Inj) 4 mg Q6H PRN IV 02/22/17 15:00 03/24/17 14:59 Nitroglycerin (Nitrostat Tab) 0.4 mg UD PRN SL 02/22/17 15:00 03/24/17 14:59 Polyethylene (Miralax Powder Packet) 17 gm DAILY PRN PO 02/22/17 15:00 03/24/17 14:59 Divalproex Sodium (Depakote Delay Rel Tab) 250 mg DAILY@1200 PO 02/23/17 12:00 03/25/17 11:59 02/23/17 12:37 250 MG Divalproex Sodium (Depakote Extended Rel Tab) 500 mg BID PO 02/22/17 21:00 03/24/17 20:59 Future Hold Fluoxetine HCl (Prozac Cap) 40 mg QPM PO 02/22/17 21:00 03/24/17 20:59 02/23/17 23:50 40 MG Lisinopril (Zestril Tab) 5 mg DAILY PO 02/23/17 09:00 03/25/17 08:59 02/24/17 08:25 5 MG Mirtazapine (Remeron Tab) 15 mg HS PO 02/22/17 21:00 03/24/17 20:59 02/23/17 23:50 15 MG Propranolol HCl (Inderal Tab) 10 mg TID PO 02/22/17 21:00 03/24/17 20:59 02/24/17 08:26 10 MG Topiramate (Topamax Tab) 200 mg BID PO 02/22/17 21:00 03/24/17 20:59 02/24/17 08:25 200 MG Valproate Sodium 500 mg/Dextrose 55 ml @ 55 mls/hr BID IV 02/23/17 09:00 03/25/17 08:59 02/24/17 08:25 55 MLS/HR Lorazepam (Ativan Inj) 1 mg UD PRN IV 02/23/17 00:15 03/25/17 00:14 02/23/17 19:41 1 MG Levetiracetam 1000 mg/Dextrose 110 ml @ 420 mls/hr Q12 IV 02/23/17 21:00 03/25/17 08:59 02/24/17 08:23 420 MLS/HR Impression This patient continues to exhibit episodes that are highly suggestive of pseudoseizures based on the observed, documented behavior occurring during the events. Of course, I am unable to completely exclude a possible diagnosis of epilepsy in this patient. I do not think her current somnolence is related to the Keppra dosage increase yesterday. However, she has received multiple dosages of lorazepam over the past 24 hours which is probably a greater contributor to her current sedation. Plan We will attempt to obtain another electroencephalogram at bedside today. This patient became quite agitated yesterday with previous attempts at obtaining an EEG. Continue with Keppra 1000 g IV every 12 hours Continue with valproate 500 mg IV every 12 hours Follow up with brain MRI If this patient continues to exhibit seizure-like activity then I would recommend transfer to a tertiary center for continuous video EEG monitoring where a diagnosis of either pseudoseizures or epilepsy can be corroborated with greater certainty.
[2017-02-24] MEDS: DIVALPROEX SODIUM 250 MG DELAY REL TAB PO SCH (11:42)
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
[2017-02-24] MEDS: LORAZEPAM 2 MG/ML 1 ML VIAL IV PRN (15:32)
[2017-02-24] MEDS: FLUOXETINE HCL 20 MG CAP PO SCH (20:42)
[2017-02-24] MEDS: MIRTAZAPINE TAB 15 MG TAB PO SCH (20:42)
[2017-02-24] MEDS: ENOXAPARIN 40 MG/0.4 ML SYR SC SCH (20:50)
[2017-02-24] MEDS: ACETAMINOPHEN 325 MG TAB PO PRN (23:32)
[2017-02-25 05:00] VITALS: BP 131/67; PULSE 79; TEMP 37; O2SAT 100
[2017-02-25 05:47] LABS: HEMATOCRIT 39.4 % (37-47); MEAN CELL VOLUME 79.3 fL (80-100); MEAN CORPUSCULAR HEMOGLOBIN 24.5 pg (25-34); MEAN PLATELET VOLUME 9.1 fL (7.4-10.4); PLATELET COUNT 302 K/uL (130-400); RED BLOOD COUNT 4.97 M/uL (4.2-5.4); WHITE BLOOD COUNT 9.22 K/uL (4.8-10.8)
[2017-02-25 06:15] LABS: BUN/CREATININE RATIO 14.8 (10-20); CALCIUM 8.6 mg/dl (8.5-10.1); CREATININE 0.65 mg/dl (0.60-1.20); POTASSIUM 3.8 mmol/L (3.5-5.1)
--- NOTE | 2017-02-25 07:00 | Family Medicine Progress Note ---
Progress Note Date of Service Feb 25, 2017. Subjective Pt evaluation today including: conversation w/ patient, physical exam, chart review, lab review The patient was seen and examined at bedside. Pt didn't receive any Ativan overnight. Continues to have Seizures/Pseudo seizures today. Pt talks quietly. Is oriented to time person and place. When asked about pain pt points to head, chest and lower extremities. When asked to localize or describe the pain pt is unable to do so. Subjective exam takes an extended period of time because of slow verbalization. Plan of care was described to the patient and nursing staff and all questions were answered. Pt has a pseudolike seizure at approximately 10:30AM today. She was walking back from a stool and went limp. Several nurses were required to lift her. Pt was not responding to stimuli, eyes were not saccadic, pt has a watson and unable asses urinary incontinence during episode. ROS: Unable to obtain because pt is unable to hold long conversations. Objective Physical Exam General Appearance: WD/WN, + obese Neck: no JVD Respiratory/Chest: chest non-tender, lungs clear, normal breath sounds, no respiratory distress, no accessory muscle use Cardiovascular: regular rate, rhythm, no edema, no gallop, no JVD, no murmur Abdomen: normal bowel sounds, non tender, soft, no organomegaly, no pulsatile mass Extremities: normal range of motion, non-tender, normal inspection, no pedal edema, no calf tenderness Neurologic/Psychiatric: field handyman II-XII nml as tested, no motor/sensory deficits, alert, normal mood/affect, oriented x 3 Skin: no rash Assessment and Plan 21F with PMHx of seizure disorder, HTN, and depression, who presented to the ED from [facility] with complaints of seizure-like activity over the last couple of days. Pt seized several times in the hospital and was given Ativan. Keppra was doubled to 1000 IV BID, Depakote was increased to 500mg BID and Topamax was maintained at 200mg BID. Pt has continued to have seizures or pseudoseizures here and has refused EEG monitoring. Pt will need video EEG monitoring that we are not able to provide. We cannot obtain a regular EEG because pt refuses head gear. In present state pt is unsafe to transfer back to senior living. Seizure-like activity, pseudoseizure vs seizure disorder: - Tele showed sinus rhythm. Afebrile. No WBC. TSH normal. CT head unremarkable. - Seizure precautions. - c/w Depakote IV 500 mg BID, Keppra IV 1000 mg BID, Topamax 200 mg BID - Valproic acid checked on - Neurology - will need higher level of care to provide assessment. Anxiety/depression w/ suicidal attempt in the last 24-hours: - Suicidal watch - Continue Prozac 40 mg HS, Remeron 15 mg HS, Propranolol 10 mg TID - Psych on board. HTN: Continue Lisinopril 5 mg daily GI Prophylaxis: Maalox PRN, IV Zofran PRN, Colace and/or Milk of Mag PRN DVT prophylaxis: Lovenox 40 mg SQ q24 hrs, SIDNEY and SCDs Code Status: Full Code Dispo: From [facility] Resident Physician Supervision Note: I interviewed and examined the patient. Discussed with Dr. Morley and agree with findings and plan as documented in the note. Any exceptions or clarifications are listed here: None Documented By: Cong Finney no hpi or ros obtainable. senior living seems reticent to take her back as is. discussed with [facility] neuro - they're willing to take her for 24hr EEG monitoring, however it wouldn't be read until tuesday - therefore ideal timing will be to transfer tuesday so she can be monitored overnight then read EEG in AM then be able to confirm/refute dx. vitals noted nad breathing unlabored cta b/l no rrw good spontaneous effort. reg no r/m/g seizure like activity - more and more appearing c/w pseudoseizures. for 24hr eeg at [facility] - but not able to go until tuesday. until dx confirmed, seems too risky for otupatient w/u. otehrwise as above Resident Involvement: Resident Care Provided Care Provided: Adult Hospital Medicine
[2017-02-25 07:49] VITALS: BP 117/76; PULSE 92; TEMP 36.7; O2SAT 100
[2017-02-25] MEDS: TOPIRAMATE 100 MG TAB PO SCH ×2 (09:00→20:03)
[2017-02-25] MEDS: LISINOPRIL 5 MG TAB PO SCH (09:00)
[2017-02-25] MEDS: VALPROATE SOD IV 500 MG in DEXTROSE 5% 50ML 50 ML IV SCH ×2 (09:00→20:05)
[2017-02-25] MEDS: PROPRANOLOL HCL 10 MG TAB PO SCH ×3 (09:00→20:04)
[2017-02-25] MEDS: LEVETIRACETAM IV 1,000 MG in DEXTROSE 5% 100ML 100 ML IV SCH ×2 (10:45→20:05)
[2017-02-25 11:49] VITALS: BP 122/79; PULSE 89; TEMP 36.7; O2SAT 99
[2017-02-25 15:23] VITALS: BP 145/81; PULSE 83; TEMP 36.5; O2SAT 98
--- NOTE | 2017-02-25 16:54 | Psychiatric Progress Notes ---
Psychiatric Progress Note Date of Service Feb 25, 2017. Notes ID: Patient reviewed with liaison nurse. Initial consult by Dr. Wen completed yesterday. Case reviewed with Dr. Finney. CC: patient unable to provide as being lifted back to bed with postictal like symptoms HPI: had a possible event while standing after using toilet, multiple staff at bedside, watson in place so unclear if incontinence ROS: patient unable to provide MSE: appears sedated Imp: as per initial consult, reviewed med list and labs Plan: agree with need for more extended EEG monitoring as cannot currently exclude seizure activity, maintained on several agents. She is not medically appropriate for transfer to [facility] and came from secure facility. Primary team planning to seek tertiary care transfer if unable to get needed care at [facility]. Remains on 1 on1. If remains hospitalized here could attempt to induce a pseudoseizure via suggestion but this alone (even if positive) would not exclude seizure.
--- NOTE | 2017-02-25 17:22 | Neurology Progress Notes ---
Neurology Progress Note Date of Service Feb 25, 2017. Subjective Follow-up for seizure-like activity This patient was evaluated during rounds this morning. Her case was discussed with her nurse as well as the residential green building designer at bedside. The patient was unwilling to participate with an actual interview or physical examination this morning. She has continuously refused placement of EEG leads throughout this hospitalization. She refused yet another attempt this morning and became agitated and aggressive with the technologist. Nursing notes again reviewed. Patient has continued to display episodic atypical spells characterized by back arching, fronting, foaming at the mouth, attempts at vomiting, with associated irregular movements of the limbs and sometimes back and forth movements of the head. Depakote and Keppra have been continued intravenously. The patient has been receiving topiramate as well. Objective Date Time Temp Pulse Resp B/P (MAP) Pulse Ox O2 Delivery O2 Flow Rate FiO2 02/25/17 15:23 36.5 83 22 145/81 (102) 98 Nasal Cannula 2.0 02/25/17 12:00 Room Air 02/25/17 11:49 36.7 89 20 122/79 (93) 99 Nasal Cannula 2.0 02/25/17 07:49 36.7 92 17 117/76 (90) 100 Nasal Cannula 2.0 02/25/17 07:40 Room Air 02/25/17 05:00 37.0 79 18 131/67 (88) 100 Nasal Cannula 2.0 02/25/17 04:00 Room Air 02/25/17 00:00 Room Air 02/24/17 23:35 37.0 92 20 129/72 (91) 98 Room Air 02/24/17 20:00 Room Air 02/24/17 20:00 37.1 96 18 125/74 (91) 100 Nasal Cannula 2.0 Last 24 Hours Test 02/25/17 05:20 White Blood Count 9.22 K/uL Red Blood Count 4.97 M/uL Hemoglobin 12.2 g/dL Hematocrit 39.4 % Mean Corpuscular Volume 79.3 fL Mean Corpuscular Hemoglobin 24.5 pg Mean Corpuscular Hemoglobin Concent 31.0 g/dl RDW Standard Deviation 44.6 fL RDW Coefficient of Variation 15.5 % Platelet Count 302 K/uL Mean Platelet Volume 9.1 fL Sodium Level 143 mmol/L Potassium Level 3.8 mmol/L Chloride Level 111 mmol/L Carbon Dioxide Level 24 mmol/L Anion Gap 8.0 mmol/L Blood Urea Nitrogen 10 mg/dl Creatinine 0.65 mg/dl Est Creatinine Clear Calc Drug Dose 206.7 ml/min Estimated GFR () 146.1 Estimated GFR (Non- 126.0 BUN/Creatinine Ratio 14.8 Random Glucose 79 mg/dl Calcium Level 8.6 mg/dl Current Inpatient Medications Medications (Trade) Dose Ordered Sig/David Route Start Time Stop Time Status Last Admin Dose Admin Enoxaparin Sodium (Lovenox Inj) 40 mg Q24H SC 02/22/17 21:00 03/24/17 20:59 02/24/17 20:50 40 MG Acetaminophen (Tylenol Tab) 650 mg Q4H PRN PO 02/22/17 15:00 03/24/17 14:59 02/24/17 23:32 650 MG Al Hydrox/Mg Hydrox/Simethicone (Maalox Max Susp) 15 ml Q4H PRN PO 02/22/17 15:00 03/24/17 14:59 Magnesium Hydroxide (Milk Of Magnesia Susp) 30 ml Q12H PRN PO 02/22/17 15:00 03/24/17 14:59 Ondansetron HCl (Zofran Inj) 4 mg Q6H PRN IV 02/22/17 15:00 03/24/17 14:59 02/24/17 12:33 4 MG Nitroglycerin (Nitrostat Tab) 0.4 mg UD PRN SL 02/22/17 15:00 03/24/17 14:59 Polyethylene (Miralax Powder Packet) 17 gm DAILY PRN PO 02/22/17 15:00 03/24/17 14:59 Divalproex Sodium (Depakote Delay Rel Tab) 250 mg DAILY@1200 PO 02/23/17 12:00 03/25/17 11:59 02/24/17 11:42 250 MG Divalproex Sodium (Depakote Extended Rel Tab) 500 mg BID PO 02/22/17 21:00 03/24/17 20:59 Future Hold Fluoxetine HCl (Prozac Cap) 40 mg QPM PO 02/22/17 21:00 03/24/17 20:59 02/23/17 23:50 40 MG Lisinopril (Zestril Tab) 5 mg DAILY PO 02/23/17 09:00 03/25/17 08:59 02/25/17 09:00 5 MG Mirtazapine (Remeron Tab) 15 mg HS PO 02/22/17 21:00 03/24/17 20:59 02/23/17 23:50 15 MG Propranolol HCl (Inderal Tab) 10 mg TID PO 02/22/17 21:00 03/24/17 20:59 02/25/17 09:00 10 MG Topiramate (Topamax Tab) 200 mg BID PO 02/22/17 21:00 03/24/17 20:59 02/25/17 09:00 200 MG Valproate Sodium 500 mg/Dextrose 55 ml @ 55 mls/hr BID IV 02/23/17 09:00 03/25/17 08:59 02/25/17 09:00 55 MLS/HR Lorazepam (Ativan Inj) 1 mg UD PRN IV 02/23/17 00:15 03/25/17 00:14 02/24/17 15:32 1 MG Levetiracetam 1000 mg/Dextrose 110 ml @ 420 mls/hr Q12 IV 02/23/17 21:00 03/25/17 08:59 02/25/17 10:45 420 MLS/HR Impression This patient continues to display episodic atypical spells that are most consistent with pseudoseizures based on the observed and documented behavior occurring during these events. The patient remains resistant with attempts at obtaining a bedside EEG. However, even if a bedside EEG could be completed I do not think this type of testing would be adequate to support or exclude a diagnosis of pseudoseizures. Ideally, this patient would need extended, inpatient, video EEG monitoring at a tertiary center where an actual episode could be captured and a potential electrophysiologic correlate could be made. Continue with current anticonvulsant regimen. Recommend transfer to a tertiary center for extended video EEG monitoring.
[2017-02-25] MEDS: DIVALPROEX SODIUM 250 MG DELAY REL TAB PO SCH (17:38)
[2017-02-25 19:50] VITALS: BP 131/71; PULSE 89; TEMP 36.9; O2SAT 100
[2017-02-25] MEDS: ACETAMINOPHEN 325 MG TAB PO PRN (20:03)
[2017-02-25] MEDS: MIRTAZAPINE TAB 15 MG TAB PO SCH (20:03)
[2017-02-25] MEDS: FLUOXETINE HCL 20 MG CAP PO SCH (20:04)
[2017-02-25] MEDS: ENOXAPARIN 40 MG/0.4 ML SYR SC SCH (20:05)
[2017-02-25 23:52] VITALS: BP 140/90; PULSE 89; TEMP 37.1; O2SAT 99
[2017-02-26 05:00] VITALS: BP 113/65; PULSE 78; TEMP 37; O2SAT 98
[2017-02-26 05:40] LABS: HEMATOCRIT 41.1 % (37-47); MEAN CELL VOLUME 80.1 fL (80-100); MEAN CORPUSCULAR HEMOGLOBIN 24.2 pg (25-34); MEAN CORPUSCULAR HGB CONC 30.2 g/dl (32-36); PLATELET COUNT 314 K/uL (130-400); RED BLOOD COUNT 5.13 M/uL (4.2-5.4); WHITE BLOOD COUNT 8.33 K/uL (4.8-10.8)
[2017-02-26 07:55] VITALS: BP 113/85; PULSE 84; TEMP 36.7; O2SAT 100
[2017-02-26] MEDS: VALPROATE SOD IV 500 MG in DEXTROSE 5% 50ML 50 ML IV SCH (09:10)
[2017-02-26] MEDS: LISINOPRIL 5 MG TAB PO SCH (09:10)
[2017-02-26] MEDS: TOPIRAMATE 100 MG TAB PO SCH (09:10)
[2017-02-26] MEDS: PROPRANOLOL HCL 10 MG TAB PO SCH ×2 (09:10→14:00)
--- NOTE | 2017-02-26 09:17 | Family Medicine Progress Note ---
Progress Note Date of Service Feb 26, 2017. Subjective Pt evaluation today including: conversation w/ patient, physical exam, chart review, conversation w/ healthcare network pricing consultant Pain: none PO Intake: good Voiding: watson catheter in place Patient with no acute events overnight She was fairly unresponsive to history and physical exam this morning. She only replied very quietly and without making any eye contact. She did not have any seizures overnight and otherwise slept well. She did eat dinner last night but did not eat anything this morning. She denied any nausea, vomiting, headache, chest pain, palpitations. Was only able to get a limited ROS due to patient not answering my questions Additional Comments: Please see above for ros Medications Current Inpatient Medications Medications (Trade) Dose Ordered Sig/David Route Start Time Stop Time Status Last Admin Dose Admin Enoxaparin Sodium (Lovenox Inj) 40 mg Q24H SC 02/22/17 21:00 03/24/17 20:59 02/25/17 20:05 40 MG Acetaminophen (Tylenol Tab) 650 mg Q4H PRN PO 02/22/17 15:00 03/24/17 14:59 02/25/17 20:03 650 MG Al Hydrox/Mg Hydrox/Simethicone (Maalox Max Susp) 15 ml Q4H PRN PO 02/22/17 15:00 03/24/17 14:59 Magnesium Hydroxide (Milk Of Magnesia Susp) 30 ml Q12H PRN PO 02/22/17 15:00 03/24/17 14:59 Ondansetron HCl (Zofran Inj) 4 mg Q6H PRN IV 02/22/17 15:00 03/24/17 14:59 02/24/17 12:33 4 MG Nitroglycerin (Nitrostat Tab) 0.4 mg UD PRN SL 02/22/17 15:00 03/24/17 14:59 Polyethylene (Miralax Powder Packet) 17 gm DAILY PRN PO 02/22/17 15:00 03/24/17 14:59 Divalproex Sodium (Depakote Delay Rel Tab) 250 mg DAILY@1200 PO 02/23/17 12:00 03/25/17 11:59 02/25/17 17:38 250 MG Divalproex Sodium (Depakote Extended Rel Tab) 500 mg BID PO 02/22/17 21:00 03/24/17 20:59 Future Hold Fluoxetine HCl (Prozac Cap) 40 mg QPM PO 02/22/17 21:00 03/24/17 20:59 02/25/17 20:04 40 MG Lisinopril (Zestril Tab) 5 mg DAILY PO 02/23/17 09:00 03/25/17 08:59 02/26/17 09:10 5 MG Mirtazapine (Remeron Tab) 15 mg HS PO 02/22/17 21:00 03/24/17 20:59 02/25/17 20:03 15 MG Propranolol HCl (Inderal Tab) 10 mg TID PO 02/22/17 21:00 03/24/17 20:59 02/26/17 09:10 10 MG Topiramate (Topamax Tab) 200 mg BID PO 02/22/17 21:00 03/24/17 20:59 02/26/17 09:10 200 MG Valproate Sodium 500 mg/Dextrose 55 ml @ 55 mls/hr BID IV 02/23/17 09:00 03/25/17 08:59 02/26/17 09:10 55 MLS/HR Lorazepam (Ativan Inj) 1 mg UD PRN IV 02/23/17 00:15 03/25/17 00:14 02/24/17 15:32 1 MG Levetiracetam 1000 mg/Dextrose 110 ml @ 420 mls/hr Q12 IV 02/23/17 21:00 03/25/17 08:59 02/25/17 20:05 420 MLS/HR Objective Vital Signs Date Time Temp Pulse Resp B/P (MAP) Pulse Ox O2 Delivery O2 Flow Rate FiO2 02/26/17 07:55 36.7 84 19 113/85 (94) 100 Nasal Cannula 2.0 02/26/17 05:00 37.0 78 18 113/65 (81) 98 Room Air 02/26/17 04:00 Nasal Cannula 02/25/17 23:59 Nasal Cannula 02/25/17 23:52 37.1 89 18 140/90 (107) 99 Room Air 02/25/17 20:00 Nasal Cannula 02/25/17 19:50 36.9 89 18 131/71 (91) 100 Nasal Cannula 2.0 02/25/17 15:23 36.5 83 22 145/81 (102) 98 Nasal Cannula 2.0 02/25/17 12:00 Room Air 02/25/17 11:49 36.7 89 20 122/79 (93) 99 Nasal Cannula 2.0 Physical Exam General Appearance: WD/WN, no apparent distress, + obese Neck: no adenopathy, trachea midline Respiratory/Chest: lungs clear, normal breath sounds, no accessory muscle use Cardiovascular: regular rate, rhythm, no edema, no murmur Abdomen: normal bowel sounds, non tender, soft Extremities: normal range of motion, non-tender, no pedal edema Neurologic/Psychiatric: alert, normal mood/affect, oriented x 3 Skin: normal color, warm/dry, no rash
[2017-02-26] MEDS: LEVETIRACETAM IV 1,000 MG in DEXTROSE 5% 100ML 100 ML IV SCH (11:31)
[2017-02-26 11:43] VITALS: BP 107/70; PULSE 93; TEMP 36.8; O2SAT 99
[2017-02-26] MEDS: DIVALPROEX SODIUM 250 MG DELAY REL TAB PO SCH (12:00)
[2017-02-26 15:22] VITALS: BP 131/79; PULSE 81; TEMP 37; O2SAT 100
--- NOTE | 2017-02-26 16:47 | Discharge Instructions ---
Discharge Instructions Date of Service Feb 26, 2017. Admission Reason for Admission: Seizure Disorder Discharge Discharge Diagnosis / Problem: Seizure like activity, likely suspect psuedoseizure Discharge Goals Goal(s): Diagnostic testing Activity Recommendations Activity Limitations: per Instructions/Follow-up section . Instructions / Follow-Up Instructions / Follow-Up Continue current medications. Please work towards 24 hour EEG monitoring. Please follow up with your regular doctors. Current Hospital Diet Patient's current hospital diet: Regular Diet Discharge Diet Recommended Diet: Regular Diet Pending Studies Studies pending at discharge: no Medical Emergencies . Who to Call and When: Medical Emergencies: If at any time you feel your situation is an emergency, please call 911 immediately. . Non-Emergent Contact Non-Emergency issues call your: Primary Care Provider . . "Provider Documentation" section prepared by Thanh Gaspar. . VTE Core Measure Inpt VTE Proph given/why not?: Enoxaparin (Lovenox)JOSEPH, NgoziECathie Salgado, SCD's
--- NOTE | 2017-02-26 17:08 | Discharge Summary ---
Discharge Summary Date of Service Feb 26, 2017. (Thanh Gaspar MD) Discharge Summary Admission Date: Feb 22, 2017 at 14:55 Discharge Date: Feb 26, 2017 Discharge Disposition: Home Principal Diagnosis: Seizure like activity, likely pseudoseizure Problems/Secondary Diagnoses: (1) Seizure disorder Status: Chronic Consultations: Neurology Psychiatry (Thanh Gaspar MD) Medication Reconciliation Continued Medications: Acetaminophen Tab (Tylenol) 325 Mg Tab 650 MG PO BID PRN for Pain, TAB Bacitracin (Topical) (Bacitracin) 1 Pow Pow Divalproex Sodium (Depakote Er) 250 Mg Tab 500 MG PO BID Divalproex Sodium (Depakote Delay Rel) 250 Mg Tab 250 MG PO DAILY AT NOON Fluoxetine (Prozac) 40 Mg Cap 40 MG PO QPM, CAP Levetiracetam (Keppra) 500 Mg Tab 500 MG PO BID Lisinopril (Lisinopril) 5 Mg Tab 5 MG PO DAILY Mirtazapine (Remeron) 15 Mg Tab 15 MG PO HS Propranolol (Inderal) 10 Mg Tab 10 MG PO TID, TAB Topiramate (Topamax) 200 Mg Tab 200 MG PO BID, TAB Discharge Exam Patient with no acute events overnight She was fairly unresponsive to history and physical exam this morning. She only replied very quietly and without making any eye contact. She did not have any seizures overnight and otherwise slept well. She did eat dinner last night but did not eat anything this morning. She denied any nausea, vomiting, headache, chest pain, palpitations. Was only able to get a limited ROS due to patient not answering my questions Review of Systems: Constitutional: No fever, No chills Respiratory: No cough, No shortness of breath Cardiovascular: No chest pain, No palpitations Abdomen: No pain, No nausea, No vomiting Neurologic: No paralysis, No weakness, No numbness/tingling Physical Exam: General Appearance: WD/WN, no apparent distress, + obese Eyes: normal inspection ENT: hearing grossly normal Neck: supple, trachea midline Respiratory/Chest: lungs clear, normal breath sounds, no accessory muscle use Cardiovascular: regular rate, rhythm, no murmur, normal peripheral pulses Abdomen / GI: normal bowel sounds, non tender, soft Neurologic/Psychiatric: alert, oriented x 3, + pertinent finding (patient minimally responsive to questionning ) (Thanh Gaspar MD) Hospital Course Patient is a 21 y/o female, with PMHx of seizure disorder, HTN, and depression, who presented to the ED from [facility] with complaints of seizure- like activity over the last couple of days. Patient presented to the ED on 02/21 with similar complaints. Patient was discharged with initiating Keppra, in addition to her continued Depakote 250 mg daily + 500 mg BID and Topamax 200 mg daily and was to follow w/ neurology outpatient. According to the security guards present, patient continued to have seizure-like activity. Episode lasted , in and out, for about 40 minutes today, experiencing seizure activity for 5 minutes at a time. Patient experienced generalized convulsions and began foaming at the mouth. No bowel/bladder incontinence She cannot state what type of seizures she experiences. She denies ever having an EEG. She states she feels "spaced out" before the seizure-like activity occurs. The patient appeared very drowsy during interview; she was given IV Ativan 3mg and Keppra IV [address] scan of the head in the ED did not show any abnormalities. Patient was admitted to the hospital and neurology were consulted. At the bedside neurology tried to get an EEG but the patient was not compliant. They increased her keppra to 1000 mg IV every 12 hours. They said that if the patient was to exhibit continued seizure like activity then it would be recommended to send her to a tertiary care centre for prolonged EEG monitoring. The following day psychiatry came to see the patient who agreed with tertiary care centre EEG. Neurology once again tried to get a bedside EEG but the patient continue to refuse to get an EEG. The hospitalist team spoke to the head nurse Whitney at the corrections facility that the patient was staying at and they said that they had a place where they could manage and watch her seizures carefully. Due to the patients non compliance with EEG monitoring it was decided to discharge the patient back to the corrections facility on 2016. Total Time Spent: Less than 30 minutes This includes examination of the patient, discharge planning, medication reconciliation, and communication with other providers. (Thanh Gaspar MD) Resident Physician Supervision Note: I interviewed and examined the patient. Discussed with Dr. Gaspar and agree with findings and plan as documented in the note. Any exceptions or clarifications are listed here: None Documented By: Cong calvillo. was for mike to nick tomorrow for 24hr eeg then dispo to skilled nursing system, but skilled nursing called today and stated they can take her back and continue monitoring/keep her safe/continue w/u and treatment as appropriate within their system. (this is the reason for discharge not that she was noncompliant with EEG monitoring as stated by R1; nick was aware of this and were going to try to work around it.) no HPI or ROS from pt to me today. vitals noted nad breathing unlabored no pallor or icterus seizure like activity - seeming mostly psychogenic (and most of those NOT deliberate) but concern of course is present of how many are real epileptic type seizures -she has fortunately suffered zero serious sequellae despite having innumerable events in days leading up to admission and during hospital stay - so does appear safe with skilled nursing saying they have safe monitoring unit -would benefit from continuous eeg monitoring, but given the safety of the situation, really preferred to do so as outpt if possible given that any change of environment/new team/etc is likely to have her regress due to trust/fear/etc with her hx -stable/safe for [facility] -outpt neuro and psych ongoing eval and treat (Cong Finney, D.O.) Discharge Instructions Please refer to the electronic Patient Visit Report (Discharge Instructions) for additional information. (Thanh Gaspar MD) Additional Copies To [facility]
[2017-02-26 17:47] VITALS: BP 131/79; PULSE 81; TEMP 37; O2SAT 100
[2017-03-06] MEDS ORDERED: DIVA500T5 PO (09:27)
[2017-03-06] MEDS ORDERED: LEVE500T13 PO (11:33)
[2017-03-06] MEDS ORDERED: TOPI200T14 PO (11:34)
[2017-03-06] MEDS ORDERED: MIRT15TA PO (11:36)
[2017-03-06] MEDS ORDERED: ACET325T96 PO (12:29)
[2017-03-06] MEDS ORDERED: LSN5 PO (12:29)
[2017-03-06] MEDS ORDERED: FLUO40CA8 PO (12:29)
[2017-03-06] MEDS ORDERED: PROP10TA7 PO (12:29)
[2017-03-06] MEDS ORDERED: DIVA250T4 PO (12:29)
[2017-03-06] MEDS ORDERED: SULF800T23 PO (19:08)
== END 2017-02-26 18:15 | DRG 101 ==
LOC: EDBD 11:10 → C.EDC 11:11 → C.2E 14:55 → EDBEDREQ 15:13 → ENRESERV 15:26
PROVIDERS: ADMIT Internal Medicine; ATTEND Family Medicine
DX: G40.909 Epilepsy, unspecified, not intractable, without status epilepticus (principal); Z91.5 Personal history of self-harm; F43.10 Post-traumatic stress disorder, unspecified; F32.9 Major depressive disorder, single episode, unspecified; F41.9 Anxiety disorder, unspecified; I10 Essential (primary) hypertension; F17.200 Nicotine dependence, unspecified, uncomplicated; Z79.899 Other long term (current) drug therapy

== ENCOUNTER 2017-03-03 17:44 | Inpatient (IN) | payer OTHER ==
[~2017-03-03] VITALS: Ht 177.8 cm; Wt 135.2 kg
[~2017-03-03 17:44] MED LIST changes: -LEVE500T13 PO; -TOPI1CAP20 PO
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
[2017-03-03] MEDS ORDERED: LEVETIRACETAM IV 1,000 MG in DEXTROSE 5% 100ML 100 ML IV ONE ×2 (18:30→20:45)
--- NOTE | 2017-03-03 18:34 | DIAGNOSTIC IMAGING REPORT ---
SINGLE VIEW CHEST CLINICAL HISTORY: Seizure. FINDINGS: An AP, portable, upright chest radiograph is compared to study dated 02/21/2017. The examination is degraded by portable technique, large body habitus, and patient rotation. The cardiomediastinal silhouette is unremarkable. There are low lung volumes. The lungs and pleural spaces are clear. No pneumothorax is seen. The bony thorax is grossly intact. IMPRESSION: Low lung volumes with no active disease in the chest. Electronically signed by: Lavelle Oconnell M.D. 03/03/2017 6:33 PM Dictated Date/Time: 03/03/2017 6:32 PM
[2017-03-03 19:10] LABS: URINE APPEARANCE CLOUDY (CLEAR); URINE BILIRUBIN NEG (NEG); URINE COLOR DK YELLOW; URINE EPITHELIAL CELL AUTO 0-5 /lpf (0-5); URINE NITRITE NEG (NEG); URINE SPECIFIC GRAVITY 1.022 (1.000-1.030); UROBILINOGEN NEG (NEG)
[2017-03-03 19:10] LABS: BASO % 0.2 %; BASO ABS # 0.02 K/uL (0-0.2); COMPLETE YES; EOS % 0.4 %; HEMATOCRIT 39.3 % (37-47); IG% 0.2 %; LYMPH % 24.7 %; LYMPH ABS # 2.27 K/uL (1.2-3.4); MEAN CELL VOLUME 79.4 fL (80-100); MEAN CORPUSCULAR HEMOGLOBIN 25.3 pg (25-34); MEAN CORPUSCULAR HGB CONC 31.8 g/dl (32-36); MEAN PLATELET VOLUME 9.4 fL (7.4-10.4); MONO % 9.9 %; NEUT % 64.6 %; PLATELET COUNT 315 K/uL (130-400); RED BLOOD COUNT 4.95 M/uL (4.2-5.4); WHITE BLOOD COUNT 9.19 K/uL (4.8-10.8)
[2017-03-03 19:13] LABS: MANUAL MICROSCOPIC REQUIRED? NO; REVIEW REQ? NO
[2017-03-03] MEDS ORDERED: CEFTRIAXONE SOD INJ 1 GM ADDVIAL IV STA (19:20)
[2017-03-03 19:21] LABS: PARTIAL THROMBOPLASTIN RATIO 1.1; PROTHROMBIN TIME (PATIENT) 11.1 SECONDS (9.0-12.0)
[2017-03-03 19:27] LABS: BENZODIAZEPINE, URINE NEG (NEG); COCAINE,URINE NEG (NEG); PHENCYCLIDINE, URINE NEG (NEG)
[2017-03-03 19:31] LABS: BLOOD UREA NITROGEN 14 mg/dl (7-18); BUN/CREATININE RATIO 17.3 (10-20); CARBON DIOXIDE 22 mmol/L (21-32); CHLORIDE 111 mmol/L (98-107); CREATININE 0.83 mg/dl (0.60-1.20); GLUCOSE 101 mg/dl (70-99); MAGNESIUM 2.3 mg/dl (1.8-2.4); POTASSIUM 3.7 mmol/L (3.5-5.1); SODIUM 143 mmol/L (136-145)
[2017-03-03 19:41] LABS: PHOSPHORUS 2.3 mg/dl (2.5-4.9); THYROID STIMULATING HORMONE 0.384 uIu/ml (0.300-4.500)
[2017-03-03] MEDS ORDERED: LORAZEPAM 2 MG/ML 1 ML VIAL ONE ×2 (19:43→20:35)
[2017-03-03 19:44] LABS: PREG INTERNAL NEGATIVE QC NEG CLEAR BACKGROUND; PREG INTERNAL POSITIVE QC POS CONTROL LINE
[2017-03-03] MEDS ORDERED: LORAZEPAM 2 MG/ML 1 ML VIAL IV STA (20:34)
--- NOTE | 2017-03-03 20:40 | DIAGNOSTIC IMAGING REPORT ---
CT SCAN OF THE BRAIN WITHOUT IV CONTRAST CLINICAL HISTORY: Fall. Seizure. COMPARISON STUDY: CT of the brain dated 02/22/2017. TECHNIQUE: Unenhanced axial CT scan of the brain is performed from the vertex to the skull base. Automated dose control exposure was utilized. The examination is modestly degraded by motion artifact. CT DOSE: 1695.65 mGy.cm FINDINGS: Brain parenchyma: The brain parenchyma is normal in appearance. There is no hemorrhage, mass effect, or evidence of acute territorial ischemia by CT criteria. Boyer-white matter is preserved. No extra-axial fluid collection is seen. Ventricles, sulci, cisterns: Normal in configuration. Intracranial vasculature: The visualized intracranial vasculature at the skull base is normal in appearance. Calvarium: There is no depressed calvarial fracture. Sinuses and mastoids: The visualized paranasal sinuses are clear. The mastoid air cells are well pneumatized. Orbits: The bony orbits are grossly intact. IMPRESSION: No acute intracranial abnormality and no significant change from 02/22/2017. Electronically signed by: Lavelle Oconnell M.D. 03/03/2017 8:39 PM Dictated Date/Time: 03/03/2017 8:34 PM
--- NOTE | 2017-03-03 20:47 | DIAGNOSTIC IMAGING REPORT ---
CT SCAN OF THE CERVICAL SPINE CLINICAL HISTORY: Fall. COMPARISON STUDY: CT scan of the cervical spine dated 02/22/2017. TECHNIQUE: CT scan of the cervical spine is performed from the skull base to the upper thoracic spine. Images are reviewed in the axial, sagittal, and coronal planes. IV contrast was not administered for this examination. CT DOSE: 2955.36 mGy.cm FINDINGS: Skeletal structures: The skeletal structures are well mineralized. There is no evidence of fracture or subluxation involving the cervical spine. Vertebral body height and alignment are maintained. There is straightening of cervical lordosis with mild reversal centered at C4-C5. Mild curvature of the cervical spine is positional. The odontoid process and lateral masses are intact. The atlantoaxial articulation is preserved. The spinous processes appear intact. Intervertebral discs: The disc spaces are well maintained. Central canal: Widely patent. Soft tissues: The prevertebral and paraspinous soft tissues are within normal limits. Calvarium: The visualized calvarium at the skull base appears intact. Brain parenchyma: Partially visualized brain parenchyma the skull base is within normal limits. Sinuses and mastoids: The visualized paranasal sinuses are clear. The mastoid air cells are well pneumatized. Lung apices: Clear as visualized. IMPRESSION: There is no evidence of fracture or subluxation involving the cervical spine. Electronically signed by: Lavelle Oconnell M.D. 03/03/2017 8:46 PM Dictated Date/Time: 03/03/2017 8:34 PM
[2017-03-03] MEDS ORDERED: DIVALPROEX 250 MG EXTENDED REL TAB PO SCH (22:00)
[2017-03-03] MEDS ORDERED: DIVALPROEX 500 MG EXTENDED RELEASE TAB PO ONE (22:00)
--- NOTE | 2017-03-04 01:16 | Medical Consult ---
Consultation Date of Consultation: Mar 04, 2017. Attending Physician: History of Present Illness This is a 21 y/o F Hx HTN, depression, possible history of seizure disorder. She resides at a local correctional facility. She was recently admitted to the hospital following multiple seizure-like episodes. She was evaluated by neurology but would not comply with any necessary testing such as an EEG and was therefore ultimately discharged back to the correctional facility. It was advised that the pt follow-up at [facility] as she would eventually require an epilepsy unit with continuous EEG and video monitoring capabilities to determine if she is having grand mal seizures or pseudoseizures. The pt returns this evening as she was said to have had 10 consecutive seizures. There was no tongue biting. She believes she was incontinent of urine at one point. She did not suffer any significant trauma despite falling over multiple times. She has not exhibited hypertension, tachycardia or desaturation. She is not especially helpful with additional information and is generally lethargic. It is noted that she is currently being treated for a UTI with Bactrim. Past Medical/Surgical History Medical Problems: (1) Recurrent seizures Status: Acute Family History Patient reports no known family medical history. Social History Smoking Status: Current Some Day Smoker Housing Status: other Allergies Coded Allergies: No Known Allergies (Unverified , 03/03/17) Current Inpatient Medications Current Inpatient Medications Medications (Trade) Dose Ordered Sig/David Route Start Time Stop Time Status Last Admin Dose Admin Divalproex Sodium (Depakote Extended Rel Tab) 250 mg TODAY@2200 PO 03/03/17 22:00 03/03/17 23:59 03/03/17 22:34 250 MG Review of Systems Sent in for seizure activity as above - she is not reliable regarding the ROS presently - she is lethargic and slow to respond to any questioning. Physical Exam Date Time Temp Pulse Resp B/P (MAP) Pulse Ox O2 Delivery O2 Flow Rate FiO2 03/03/17 22:30 92 16 117/51 99 03/03/17 22:22 94 03/03/17 21:29 94 23 03/03/17 21:28 103/59 03/03/17 21:14 100 29 95 03/03/17 20:59 95 20 97 03/03/17 20:44 99 20 95 03/03/17 20:41 124/59 03/03/17 20:14 90 100 03/03/17 20:02 108/50 03/03/17 20:00 36.9 84 20 98 Room Air 03/03/17 19:59 97 98 03/03/17 19:44 79 100 03/03/17 19:31 102/ 03/03/17 19:29 81 21 111/73 97 03/03/17 18:59 86 20 99 03/03/17 18:44 83 24 100 03/03/17 18:29 85 18 100 03/03/17 18:16 84 03/03/17 18:01 116/70 03/03/17 17:58 98 Room Air 03/03/17 17:58 36.9 88 20 115/71 98 Room Air General Appearance: WD/WN, no apparent distress Head: normocephalic, atraumatic Eyes: normal inspection, EOMI ENT: normal ENT inspection, pharynx normal Neck: supple, no JVD Respiratory/Chest: chest non-tender, lungs clear, normal breath sounds, no respiratory distress, no accessory muscle use Cardiovascular: regular rate, rhythm, no edema, no gallop Abdomen/GI: normal bowel sounds, non tender, soft Back: normal inspection, no CVA tenderness, no muscle spasm, normal range of motion Extremities/Musculoskelatal: no pedal edema, + pertinent finding (Upper extremities are extensively scarred due to "cutting") Neurologic/Psych: pet resort concierge II-XII nml as tested, no motor/sensory deficits, + pertinent finding (flat affect - slow to cooperate with exam) Skin: normal color, warm/dry, no rash, + pertinent finding (extensive upper extremity scarring) Laboratory Results Last 24 Hours Test 03/03/17 18:22 03/03/17 18:50 03/03/17 19:00 Bedside Glucose 83 mg/dl Urine Color DK YELLOW Urine Appearance CLOUDY Urine pH 7.0 Urine Specific [place] 1.022 Urine Protein 2+ Urine Glucose (UA) NEG Urine Ketones 1+ Urine Occult Blood 1+ Urine Nitrite NEG Urine Bilirubin NEG Urine Urobilinogen NEG Urine Leukocyte Esterase LARGE Urine WBC (Auto) >30 /hpf Urine RBC (Auto) 10-30 /hpf Urine Hyaline Casts (Auto) 1-5 /lpf Urine Epithelial Cells (Auto) 0-5 /lpf Urine Bacteria (Auto) NEG Urine Opiates Screen NEG Urine Methadone, Qualitative NEG Urine Barbiturates NEG Urine Phencyclidine (PCP) Level NEG Ur Amphetamine/Methamphetamine NEG MDMA (Ecstasy) Screen NEG Urine Benzodiazepines Screen NEG Urine Cocaine Metabolite NEG Urine Marijuana (THC) NEG White Blood Count 9.19 K/uL Red Blood Count 4.95 M/uL Hemoglobin 12.5 g/dL Hematocrit 39.3 % Mean Corpuscular Volume 79.4 fL Mean Corpuscular Hemoglobin 25.3 pg Mean Corpuscular Hemoglobin Concent 31.8 g/dl Platelet Count 315 K/uL Mean Platelet Volume 9.4 fL Neutrophils (%) (Auto) 64.6 % Lymphocytes (%) (Auto) 24.7 % Monocytes (%) (Auto) 9.9 % Eosinophils (%) (Auto) 0.4 % Basophils (%) (Auto) 0.2 % Neutrophils # (Auto) 5.93 K/uL Lymphocytes # (Auto) 2.27 K/uL Monocytes # (Auto) 0.91 K/uL Eosinophils # (Auto) 0.04 K/uL Basophils # (Auto) 0.02 K/uL RDW Standard Deviation 45.0 fL RDW Coefficient of Variation 15.6 % Immature Granulocyte % (Auto) 0.2 % Immature Granulocyte # (Auto) 0.02 K/uL Prothrombin Time 11.1 SECONDS Prothromb Time International Ratio 1.0 Activated Partial Thromboplast Time 27.7 SECONDS Partial Thromboplastin Ratio 1.1 Sodium Level 143 mmol/L Potassium Level 3.7 mmol/L Chloride Level 111 mmol/L Carbon Dioxide Level 22 mmol/L Anion Gap 10.0 mmol/L Blood Urea Nitrogen 14 mg/dl Creatinine 0.83 mg/dl Est Creatinine Clear Calc Drug Dose 160.2 ml/min Estimated GFR () 116.0 Estimated GFR (Non- 100.1 BUN/Creatinine Ratio 17.3 Random Glucose 101 mg/dl Calcium Level 9.0 mg/dl Phosphorus Level 2.3 mg/dl Magnesium Level 2.3 mg/dl Troponin I < 0.015 ng/ml Thyroid Stimulating Hormone (TSH) 0.384 uIu/ml Prolactin 8.20 ng/mL Human Chorionic Gonadotropin, Qual NEG Valproic Acid (Depakene) Level 77 mcg/ml Assessment & Plan This is a 21 y/o F Hx HTN, depression, possible history of seizure disorder. She resides at a local correctional facility. She was recently admitted to the hospital following multiple seizure-like episodes. She was evaluated by neurology but would not comply with any necessary testing such as an EEG and was therefore ultimately discharged back to the correctional facility. It was advised that the pt follow-up at [facility] as she would eventually require an epilepsy unit with continuous EEG and video monitoring capabilities to determine if she is having grand mal seizures or pseudoseizures. The pt returns this evening as she was said to have had 10 consecutive seizures. She had an additional seizure-like episode in the ER which was witnessed only by the correctional officers. She did not appear to suffer a post-ictal state. Her described seizure activity did not correlate well with a grand mal seizure. We obtained a prolactin level during the initial evaluation and then directly after the episode. This did increase from 8 to 29 but remained within normal limits. 1) Seizure vs Pseudoseizure - the pt was initially slated for D/C - I had spoken to the neurologist at [facility] to effect a transfer as weather the episodes are seizures or pseudoseizures, she may not be safe at the [facility] that apparently does not have an infirmfleming. [facility] has declined to accept her as a transfer. [facility] was then contacted and have accepted her however they do not currently have an available bed. She is therefore admitted to our facility pending transfer to [facility]. We will monitor her on telemetry, provide PRN Ativan, cont her current anticonvulsants and consult neurology. 2) UTI - her UA is + despite Bactrim use. We will treat with Ceftriaxone. 3) HTN - cont Lisinopril 4) Depression - cont Remeron, Fluoxetine. Full code - SCDs due to fall risk Total time for this admit including review of labs meds, records - discussion with neurology at [facility], ER attending, nursing at correctional facility and pt - 50 min
[2017-03-04] MEDS ORDERED: ALUMINUM/MAGNESIUM/SIMETH (MAALOX MAX) 30 ML UDC PO PRN (02:15)
[2017-03-04] MEDS ORDERED: POLYETHYLENE (MIRALAX) 17 GM PACK PO PRN (02:15)
[2017-03-04] MEDS ORDERED: MAGNESIUM HYDROXIDE SUSP 30 ML UDC PO PRN (02:15)
[2017-03-04] MEDS ORDERED: LORAZEPAM 2 MG/ML 1 ML VIAL IV PRN (02:15)
[2017-03-04] MEDS ORDERED: ONDANSETRON INJ 2 MG/ML 2 ML VIAL IV PRN (02:15)
[2017-03-04] MEDS ORDERED: ACETAMINOPHEN 325 MG TAB PO PRN (02:15)
--- NOTE | 2017-03-04 02:22 | History and Physical ---
History & Physical Date of Service Mar 04, 2017. History & Physical History of Present Illness This is a 21 y/o F Hx HTN, depression, possible history of seizure disorder. She resides at a local correctional facility. She was recently admitted to the hospital following multiple seizure-like episodes. She was evaluated by neurology but would not comply with any necessary testing such as an EEG and was therefore ultimately discharged back to the correctional facility. It was advised that the pt follow-up at [facility] as she would eventually require an epilepsy unit with continuous EEG and video monitoring capabilities to determine if she is having grand mal seizures or pseudoseizures. The pt returns this evening as she was said to have had 10 consecutive seizures. There was no tongue biting. She believes she was incontinent of urine at one point. She did not suffer any significant trauma despite falling over multiple times. She has not exhibited hypertension, tachycardia or desaturation. She is not especially helpful with additional information and is generally lethargic. It is noted that she is currently being treated for a UTI with Bactrim. Past Medical/Surgical History Medical Problems: (1) Recurrent seizures Status: Acute Family History Patient reports no known family medical history. Social History Smoking Status: Current Some Day Smoker Housing Status: other Allergies Coded Allergies: No Known Allergies (Unverified , 03/03/17) Current Inpatient Medications Current Inpatient Medications Medications (Trade) Dose Ordered Sig/David Route Start Time Stop Time Status Last Admin Dose Admin Divalproex Sodium (Depakote Extended Rel Tab) 250 mg TODAY@2200 PO 03/03/17 22:00 03/03/17 23:59 03/03/17 22:34 250 MG Review of Systems Sent in for seizure activity as above - she is not reliable regarding the ROS presently - she is lethargic and slow to respond to any questioning. Physical Exam Date Time Temp Pulse Resp B/P (MAP) Pulse Ox O2 Delivery O2 Flow Rate FiO2 03/03/17 22:30 92 16 117/51 99 03/03/17 22:22 94 03/03/17 21:29 94 23 03/03/17 21:28 103/59 03/03/17 21:14 100 29 95 03/03/17 20:59 95 20 97 03/03/17 20:44 99 20 95 03/03/17 20:41 124/59 03/03/17 20:14 90 100 03/03/17 20:02 108/50 03/03/17 20:00 36.9 84 20 98 Room Air 03/03/17 19:59 97 98 03/03/17 19:44 79 100 03/03/17 19:31 102/ 03/03/17 19:29 81 21 111/73 97 03/03/17 18:59 86 20 99 03/03/17 18:44 83 24 100 03/03/17 18:29 85 18 100 03/03/17 18:16 84 03/03/17 18:01 116/70 03/03/17 17:58 98 Room Air 03/03/17 17:58 36.9 88 20 115/71 98 Room Air General Appearance: WD/WN, no apparent distress Head: normocephalic, atraumatic Eyes: normal inspection, EOMI ENT: normal ENT inspection, pharynx normal Neck: supple, no JVD Respiratory/Chest: chest non-tender, lungs clear, normal breath sounds, no respiratory distress, no accessory muscle use Cardiovascular: regular rate, rhythm, no edema, no gallop Abdomen/GI: normal bowel sounds, non tender, soft Back: normal inspection, no CVA tenderness, no muscle spasm, normal range of motion Extremities/Musculoskelatal: no pedal edema, + pertinent finding (Upper extremities are extensively scarred due to "cutting") Neurologic/Psych: sample display preparer II-XII nml as tested, no motor/sensory deficits, + pertinent finding (flat affect - slow to cooperate with exam) Skin: normal color, warm/dry, no rash, + pertinent finding (extensive upper extremity scarring) Laboratory Results Last 24 Hours Test 03/03/17 18:22 03/03/17 18:50 03/03/17 19:00 Bedside Glucose 83 mg/dl Urine Color DK YELLOW Urine Appearance CLOUDY Urine pH 7.0 Urine Specific [place] 1.022 Urine Protein 2+ Urine Glucose (UA) NEG Urine Ketones 1+ Urine Occult Blood 1+ Urine Nitrite NEG Urine Bilirubin NEG Urine Urobilinogen NEG Urine Leukocyte Esterase LARGE Urine WBC (Auto) >30 /hpf Urine RBC (Auto) 10-30 /hpf Urine Hyaline Casts (Auto) 1-5 /lpf Urine Epithelial Cells (Auto) 0-5 /lpf Urine Bacteria (Auto) NEG Urine Opiates Screen NEG Urine Methadone, Qualitative NEG Urine Barbiturates NEG Urine Phencyclidine (PCP) Level NEG Ur Amphetamine/Methamphetamine NEG MDMA (Ecstasy) Screen NEG Urine Benzodiazepines Screen NEG Urine Cocaine Metabolite NEG Urine Marijuana (THC) NEG White Blood Count 9.19 K/uL Red Blood Count 4.95 M/uL Hemoglobin 12.5 g/dL Hematocrit 39.3 % Mean Corpuscular Volume 79.4 fL Mean Corpuscular Hemoglobin 25.3 pg Mean Corpuscular Hemoglobin Concent 31.8 g/dl Platelet Count 315 K/uL Mean Platelet Volume 9.4 fL Neutrophils (%) (Auto) 64.6 % Lymphocytes (%) (Auto) 24.7 % Monocytes (%) (Auto) 9.9 % Eosinophils (%) (Auto) 0.4 % Basophils (%) (Auto) 0.2 % Neutrophils # (Auto) 5.93 K/uL Lymphocytes # (Auto) 2.27 K/uL Monocytes # (Auto) 0.91 K/uL Eosinophils # (Auto) 0.04 K/uL Basophils # (Auto) 0.02 K/uL RDW Standard Deviation 45.0 fL RDW Coefficient of Variation 15.6 % Immature Granulocyte % (Auto) 0.2 % Immature Granulocyte # (Auto) 0.02 K/uL Prothrombin Time 11.1 SECONDS Prothromb Time International Ratio 1.0 Activated Partial Thromboplast Time 27.7 SECONDS Partial Thromboplastin Ratio 1.1 Sodium Level 143 mmol/L Potassium Level 3.7 mmol/L Chloride Level 111 mmol/L Carbon Dioxide Level 22 mmol/L Anion Gap 10.0 mmol/L Blood Urea Nitrogen 14 mg/dl Creatinine 0.83 mg/dl Est Creatinine Clear Calc Drug Dose 160.2 ml/min Estimated GFR () 116.0 Estimated GFR (Non- 100.1 BUN/Creatinine Ratio 17.3 Random Glucose 101 mg/dl Calcium Level 9.0 mg/dl Phosphorus Level 2.3 mg/dl Magnesium Level 2.3 mg/dl Troponin I < 0.015 ng/ml Thyroid Stimulating Hormone (TSH) 0.384 uIu/ml Prolactin 8.20 ng/mL Human Chorionic Gonadotropin, Qual NEG Valproic Acid (Depakene) Level 77 mcg/ml Assessment & Plan This is a 21 y/o F Hx HTN, depression, possible history of seizure disorder. She resides at a local correctional facility. She was recently admitted to the hospital following multiple seizure-like episodes. She was evaluated by neurology but would not comply with any necessary testing such as an EEG and was therefore ultimately discharged back to the correctional facility. It was advised that the pt follow-up at [facility] as she would eventually require an epilepsy unit with continuous EEG and video monitoring capabilities to determine if she is having grand mal seizures or pseudoseizures. The pt returns this evening as she was said to have had 10 consecutive seizures. She had an additional seizure-like episode in the ER which was witnessed only by the correctional officers. She did not appear to suffer a post-ictal state. Her described seizure activity did not correlate well with a grand mal seizure. We obtained a prolactin level during the initial evaluation and then directly after the episode. This did increase from 8 to 29 but remained within normal limits. 1) Seizure vs Pseudoseizure - the pt was initially slated for D/C - I had spoken to the neurologist at [facility] to effect a transfer as weather the episodes are seizures or pseudoseizures, she may not be safe at the correctional facility that apparently does not have an [facility]. [facility] has declined to accept her as a transfer. [facility] was then contacted and have accepted her however they do not currently have an available bed. She is therefore admitted to our facility pending transfer to [facility]. We will monitor her on telemetry, provide PRN Ativan, cont her current anticonvulsants and consult neurology. 2) UTI - her UA is + despite Bactrim use. We will treat with Ceftriaxone. 3) HTN - cont Lisinopril 4) Depression - cont Remeron, Fluoxetine. Full code - SCDs due to fall risk Total time for this admit including review of labs meds, records - discussion with neurology at [facility], ER attending, nursing at correctional facility and pt - 50 min The above was initially labeled as a consult as the pt was intended for DC
[2017-03-04 02:38] VITALS: BP 119/72; PULSE 99; TEMP 36.9; O2SAT 99; Ht 177.8 cm; Wt 135.2 kg
[2017-03-04] MEDS ORDERED: KETOROLAC TROMETHAMINE 60 MG/2 ML VIAL IM STA (02:50)
[2017-03-04 04:00] VITALS: BP 138/60; PULSE 89; O2SAT 100
[2017-03-04 08:00] VITALS: BP 101/65; PULSE 83; O2SAT 98
[2017-03-04] MEDS ORDERED: TOPIRAMATE 100 MG TAB PO SCH (09:00)
[2017-03-04] MEDS ORDERED: DIVALPROEX 500 MG EXTENDED RELEASE TAB PO SCH (09:00)
[2017-03-04] MEDS ORDERED: LEVETIRACETAM 500 MG TAB PO SCH (09:00)
[2017-03-04] MEDS ORDERED: LISINOPRIL 5 MG TAB PO SCH (09:00)
[2017-03-04] MEDS ORDERED: DIVALPROEX SODIUM 500 MG DELAY RELEASE TAB PO SCH ×2 (09:00→12:00)
[2017-03-04] MEDS: PROPRANOLOL HCL 10 MG TAB PO SCH ×2 (10:07→14:18)
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
[2017-03-04] MEDS ORDERED: ACETAMINOPHEN 500 MG TAB PO SCH (11:00)
[2017-03-04] MEDS ORDERED: KETOROLAC TROMETHAMINE 30 MG/ML VIAL IV SCH (11:00)
--- NOTE | 2017-03-04 11:19 | Discharge Summary ---
Discharge Summary Date of Service Mar 04, 2017. Discharge Summary Admission Date: Mar 04, 2017 at 02:05 Discharge Disposition: Acute care facility ([facility] - attending physician Dr. Hayden Bryan ) Principal Diagnosis: seizures vs pseudoseizures Problems/Secondary Diagnoses: 1. UTI 2. morbid obesity with BMI 42.8 3. acanthosis nigricans 4. HTN 5. lumbar back pain 6. left shoulder pain 7. extensive psychiatric history including past diagnoses depression, self- cutting, anxiety, suicidal ideation, schizoaffective disorder, borderline personality disorder and PTSD Procedures: 1. CT head - negative for acute pathology. 2. CT cervical spine - no fracture. 3. chest x-ray - no infiltrates. 4. lumbar spine x-rays - no fractures, normal study. 5. left shoulder x-rays - no fractures, sublux, or dislocation - normal study. Consultations: neurology - Naveen Dyer MD Discharge Exam Physical Exam: General Appearance: no apparent distress, + obese ENT: pharynx normal Neck: no JVD Respiratory/Chest: lungs clear, no respiratory distress, no accessory muscle use Cardiovascular: regular rate, rhythm, no gallop, no JVD, no murmur, normal peripheral pulses Abdomen / GI: normal bowel sounds, non tender, soft, no organomegaly, + pertinent finding (lumbar spine - tender over l-spine and paraspinal muscles in this region with palpation ) Extremities: no pedal edema, + pertinent finding (left shoulder - tender over subacromial bursa; tenderness reproduced with abduction, internal & external rotation; no overt signs of dislocation) Neurologic/Psychiatric: no motor/sensory deficits, alert, oriented x 3 Skin: + pertinent finding (acanthosis nigricans on neck, numerous scars on her upper extremities from prior cutting ) Hospital Course HISTORY OF PRESENT ILLNESS: This is a 21yo AA female with history of HTN, depression, seizure disorder, and morbid obesity. She resides at a local correctional facility. She was recently admitted to the hospital following multiple seizure-like episodes. She was evaluated by neurology but would not comply with any necessary testing such as an EEG and was therefore ultimately discharged back to the correctional facility. It was advised that the pt follow-up at [facility] as she would eventually require an epilepsy unit with continuous EEG and video monitoring capabilities to determine if she is having grand mal seizures or pseudoseizures. The pt returns this evening as she was said to have had 10 consecutive seizures. There was no tongue biting. She believes she was incontinent of urine at one point. She did not suffer any significant trauma despite falling over multiple times. She has not exhibited hypertension, tachycardia or desaturation. She is not especially helpful with additional information and is generally lethargic. It is noted that she is currently being treated for a UTI with Bactrim. Interestingly, shortly after her seizures in the [facility] ER, prolactin level was drawn and was within normal limits. HOSPITAL COURSE: The patient was reloaded with keppra IV in the emergency department. CT head and CT cervical spine were both normal. Depakote level was 77. Topamax and keppra levels were sent and were pending at time of transfer. She was seen in consult by Dr. Naveen Dyer, neurology, who recommended increasing her depakote to 500mg TID and to transfer her to a tertiary care center where she could be observed in an epilepsy unit where continuous EEG monitoring could be obtained. After admission to our telemetry unit she had no further seizure-like events. Vitals remained stable. Labs were within normal limits including a negative serum HCG. U/a was suspicious for UTI and she was given rocephin IV. Urine culture was pending at time of discharge. She complained of lumbar back pain and left shoulder pain along with headache. These symptoms were treated with tylenol and NSAIDs. [facility] was contacted, and Dr. Hayden Bryan graciously accepted this patient in transfer for ongoing care. 03/03/17 19:00 Red Blood Count 4.95, Mean Corpuscular Volume 79.4, Mean Corpuscular Hemoglobin 25.3, Mean Corpuscular Hemoglobin Concent 31.8, Mean Platelet Volume 9.4, Neutrophils (%) (Auto) 64.6, Lymphocytes (%) (Auto) 24.7, Monocytes (%) (Auto) 9.9, Eosinophils (%) (Auto) 0.4, Basophils (%) (Auto) 0.2, Neutrophils # (Auto) 5.93, Lymphocytes # (Auto) 2.27, Monocytes # (Auto) 0.91, Eosinophils # (Auto) 0.04, Basophils # (Auto) 0.02 03/03/17 19:00 Test 03/03/17 18:22 03/03/17 18:50 03/03/17 19:00 03/04/17 00:46 Bedside Glucose 83 mg/dl (70-90) Urine Color DK YELLOW Urine Appearance CLOUDY (CLEAR) Urine pH 7.0 (4.5-7.5) Urine Specific [place] 1.022 (1.000-1.030) Urine Protein 2+ (NEG) Urine Glucose (UA) NEG (NEG) Urine Ketones 1+ (NEG) Urine Occult Blood 1+ (NEG) Urine Nitrite NEG (NEG) Urine Bilirubin NEG (NEG) Urine Urobilinogen NEG (NEG) Urine Leukocyte Esterase LARGE (NEG) Urine WBC (Auto) >30 /hpf (0-5) Urine RBC (Auto) 10-30 /hpf (0-4) Urine Hyaline Casts (Auto) 1-5 /lpf (0-5) Urine Epithelial Cells (Auto) 0-5 /lpf (0-5) Urine Bacteria (Auto) NEG (NEG) Urine Opiates Screen NEG (NEG) Urine Methadone, Qualitative NEG (NEG) Urine Barbiturates NEG (NEG) Urine Phencyclidine (PCP) Level NEG (NEG) Ur Amphetamine/Methamphetamine NEG (NEG) MDMA (Ecstasy) Screen NEG (NEG) Urine Benzodiazepines Screen NEG (NEG) Urine Cocaine Metabolite NEG (NEG) Urine Marijuana (THC) NEG (NEG) White Blood Count 9.19 K/uL (4.8-10.8) Red Blood Count 4.95 M/uL (4.2-5.4) Hemoglobin 12.5 g/dL (12.0-16.0) Hematocrit 39.3 % (37-47) Mean Corpuscular Volume 79.4 fL (80-100) Mean Corpuscular Hemoglobin 25.3 pg (25-34) Mean Corpuscular Hemoglobin Concent 31.8 g/dl (32-36) Platelet Count 315 K/uL (130-400) Mean Platelet Volume 9.4 fL (7.4-10.4) Neutrophils (%) (Auto) 64.6 % Lymphocytes (%) (Auto) 24.7 % Monocytes (%) (Auto) 9.9 % Eosinophils (%) (Auto) 0.4 % Basophils (%) (Auto) 0.2 % Neutrophils # (Auto) 5.93 K/uL (1.4-6.5) Lymphocytes # (Auto) 2.27 K/uL (1.2-3.4) Monocytes # (Auto) 0.91 K/uL (0.11-0.59) Eosinophils # (Auto) 0.04 K/uL (0-0.5) Basophils # (Auto) 0.02 K/uL (0-0.2) RDW Standard Deviation 45.0 fL (36.4-46.3) RDW Coefficient of Variation 15.6 % (11.5-14.5) Immature Granulocyte % (Auto) 0.2 % Immature Granulocyte # (Auto) 0.02 K/uL (0.00-0.02) Prothrombin Time 11.1 SECONDS (9.0-12.0) Prothromb Time International Ratio 1.0 (0.9-1.1) Activated Partial Thromboplast Time 27.7 SECONDS (21.0-31.0) Partial Thromboplastin Ratio 1.1 Anion Gap 10.0 mmol/L (3-11) Est Creatinine Clear Calc Drug Dose 160.2 ml/min Estimated GFR () 116.0 Estimated GFR (Non- 100.1 BUN/Creatinine Ratio 17.3 (10-20) Calcium Level 9.0 mg/dl (8.5-10.1) Phosphorus Level 2.3 mg/dl (2.5-4.9) Magnesium Level 2.3 mg/dl (1.8-2.4) Troponin I < 0.015 ng/ml (0-0.045) Thyroid Stimulating Hormone (TSH) 0.384 uIu/ml (0.300-4.500) Human Chorionic Gonadotropin, Qual NEG (NEG) Valproic Acid (Depakene) Level 77 mcg/ml (50-100) Prolactin 25.36 ng/mL Current Inpatient Medications Medications (Trade) Dose Ordered Sig/David Route Start Time Stop Time Status Last Admin Dose Admin Acetaminophen (Tylenol Tab) 650 mg Q4H PRN PO 03/04/17 02:15 04/03/17 02:14 Al Hydrox/Mg Hydrox/Simethicone (Maalox Max Susp) 15 ml Q4H PRN PO 03/04/17 02:15 04/03/17 02:14 Magnesium Hydroxide (Milk Of Magnesia Susp) 30 ml Q12H PRN PO 03/04/17 02:15 04/03/17 02:14 Ondansetron HCl (Zofran Inj) 4 mg Q6H PRN IV 03/04/17 02:15 04/03/17 02:14 Polyethylene (Miralax Powder Packet) 17 gm DAILY PRN PO 03/04/17 02:15 04/03/17 02:14 Lorazepam (Ativan Inj) 2 mg Q1H PRN IV 03/04/17 02:15 04/03/17 02:14 Divalproex Sodium (Depakote Delay Rel Tab) 500 mg DAILY@1200 PO 03/04/17 12:00 04/03/17 11:59 Fluoxetine HCl (Prozac Cap) 40 mg QPM PO 03/04/17 21:00 04/03/17 20:59 Levetiracetam (Keppra Tab) 500 mg BID PO 03/04/17 09:00 04/03/17 08:59 03/04/17 10:07 500 MG Lisinopril (Zestril Tab) 5 mg DAILY PO 03/04/17 09:00 04/03/17 08:59 03/04/17 10:07 5 MG Mirtazapine (Remeron Tab) 15 mg HS PO 03/04/17 21:00 04/03/17 20:59 Propranolol HCl (Inderal Tab) 10 mg TID PO 03/04/17 09:00 04/03/17 08:59 03/04/17 10:07 10 MG Topiramate (Topamax Tab) 200 mg BID PO 03/04/17 09:00 04/03/17 08:59 03/04/17 10:07 200 MG Ceftriaxone Sodium 1 gm/ Dextrose 50 ml @ 100 mls/hr Q24H IV 03/04/17 20:00 03/08/17 19:59 Divalproex Sodium (Depakote Delay Rel Tab) 500 mg BID PO 03/04/17 09:00 04/03/17 08:59 03/04/17 10:07 500 MG Ketorolac Tromethamine (Toradol Inj) 30 mg TODAY@1100 IV 03/04/17 11:00 03/04/17 14:00 Acetaminophen (Tylenol Tab) 1,000 mg TODAY@1100 PO 03/04/17 11:00 03/04/17 14:00 I would like to thank Dr. Hayden Bryan at [facility] for accepting this patient in transfer for ongoing care. Total Time Spent: Greater than 30 minutes This includes examination of the patient, discharge planning, medication reconciliation, and communication with other providers. Discharge Instructions Please refer to the electronic Patient Visit Report (Discharge Instructions) for additional information. Follow-Up to be arranged after hospitalization at [facility] Additional Copies To [facility]; Pavithra Dyer M.D. ; [facility]
[2017-03-04] MEDS ORDERED: DIVALPROEX SODIUM 250 MG DELAY REL TAB PO SCH (12:00)
--- NOTE | 2017-03-04 12:19 | DIAGNOSTIC IMAGING REPORT ---
LUMBAR SPINE 5 VIEWS CLINICAL HISTORY: Recent fall. Low back pain. FINDINGS: 5 views of the lumbar spine are obtained. No prior studies are available for comparison at the time of dictation. The skeletal structures are well mineralized. There is no radiographic evidence of fracture or malalignment. Vertebral body height and alignment are maintained. The transverse and spinous processes are intact. There is no evidence of spondylolysis. The intervertebral disc spaces are well-maintained. The visualized bony pelvis appears intact. There is a nonobstructed abdominal bowel gas pattern. IMPRESSION: Unremarkable radiographic evaluation of the lumbosacral spine. Electronically signed by: Lavelle Oconnell M.D. 03/04/2017 12:18 PM Dictated Date/Time: 03/04/2017 12:17 PM
--- NOTE | 2017-03-04 12:21 | DIAGNOSTIC IMAGING REPORT ---
LEFT SHOULDER 3 VIEWS CLINICAL HISTORY: Left shoulder pain. Recent seizure. FINDINGS: 3 views of the left shoulder are obtained. No prior studies are available for comparison at the time of dictation. The skeletal structures are well mineralized. No fracture or dislocation is seen in the left shoulder. The glenohumeral and acromioclavicular joints are preserved. The overlying soft tissues are within normal limits. Imaged left lung parenchyma appears clear. IMPRESSION: Unremarkable radiographic assessment of the left shoulder. Electronically signed by: Lavelle Oconnell M.D. 03/04/2017 12:19 PM Dictated Date/Time: 03/04/2017 12:18 PM
[2017-03-04 12:25] VITALS: PULSE 84
[2017-03-04 15:20] VITALS: BP 101/65; PULSE 84; TEMP 36.9; O2SAT 98
[2017-03-04] MEDS ORDERED: CEFTRIAXONE SOD INJ 1 GM in DEXTROSE 5% ADD-VANTAGE 50ML 50 ML IV SCH (20:00)
[2017-03-04] MEDS ORDERED: MIRTAZAPINE TAB 15 MG TAB PO SCH (21:00)
[2017-03-04] MEDS ORDERED: FLUOXETINE HCL 20 MG CAP PO SCH (21:00)
[2017-03-06] MEDS ORDERED: DIVA500T5 PO (09:27)
[2017-03-06] MEDS ORDERED: LEVE500T13 PO (11:33)
[2017-03-06] MEDS ORDERED: TOPI200T14 PO (11:34)
[2017-03-06] MEDS ORDERED: MIRT15TA PO (11:36)
[2017-03-06] MEDS ORDERED: PROP10TA7 PO (12:29)
[2017-03-06] MEDS ORDERED: ACET325T96 PO (12:29)
[2017-03-06] MEDS ORDERED: LSN5 PO (12:29)
[2017-03-06] MEDS ORDERED: FLUO40CA8 PO (12:29)
[2017-03-06] MEDS ORDERED: DIVA250T4 PO (12:29)
[2017-03-06 18:31] LABS: TOPIRAMATE (TOPAMAX)**30965 11.9 mcg/mL
[2017-03-06] MEDS ORDERED: SULF800T23 PO (19:08)
== END 2017-03-04 15:24 | disposition short-term general hospital (02) | DRG 101 ==
LOC: EDBD 17:44 → C.EDB 17:45 → C.MSICU 03-04 02:05 → ENRESERV 03-04 02:20
PROVIDERS: ADMIT Internal Medicine; ATTEND Internal Medicine
DX: G40.909 Epilepsy, unspecified, not intractable, without status epilepticus (principal); N39.0 Urinary tract infection, site not specified; Z68.41 Body mass index [BMI] 40.0-44.9, adult; F39 Unspecified mood [affective] disorder; F17.200 Nicotine dependence, unspecified, uncomplicated; F32.9 Major depressive disorder, single episode, unspecified; I10 Essential (primary) hypertension; E66.01 Morbid (severe) obesity due to excess calories; L83 Acanthosis nigricans; M54.5 Low back pain; M25.512 Pain in left shoulder

== ENCOUNTER 2017-03-06 19:34 | Emergency (ER) | payer OTHER ==
[~2017-03-06 19:34] MED LIST changes: +ACET325T96 PO; -BACI1POW; -DIVA250T PO; +DIVA250T4 PO; +DIVA500T5 PO; +FLUO40CA8 PO; +LEVE500T13 PO; +LSN5 PO; +MIRT15TA PO; +PROP10TA7 PO; +SULF800T23 PO; +TOPI200T14 PO
[2017-03-06 19:39] VITALS: TEMP 36.9
[2017-03-06] MEDS ORDERED: BACIOIN2 TOP (21:40)
--- NOTE | 2017-03-06 22:26 | EMERGENCY ROOM VISIT NOTE ---
History Report prepared by Ezeibluis: Julio Lao Under the Supervision of: Dr. Frankie Garcia D.O. First contact with patient: 19:39 Chief Complaint: SEIZURE Stated Complaint: SEIZURE History of Present Illness The patient is a 21 year old female who presents to the Emergency Room with a resolved seizure that occurred prior to arrival. Per nursing staff, the patient had a seizure and hit her head. The patient was admitted to [facility] two days ago and discharged back to intermediate today. The patient had the seizure returning to intermediate. The patient was diagnosed with pseudoseizures at [facility]. The patient is noncompliant and will not give a complete history. Source of History: nursing staff History Limited By: other (noncompliance) Onset: prior to arrival Position: other (global) Quality: other (seizure) Timing: resolved Review of Systems ROS is limited secondary to noncompliance. Past Medical & Surgical Medical Problems: (1) Mood disorder (2) Seizure disorder Family History Patient reports no known family medical history. Social History Smoking Status: Current Every Day Smoker Drug Use: none Marital Status: single Housing Status: other (intermediate) Occupation Status: unemployed Current/Historical Medications Scheduled Divalproex Sodium (Depakote Delay Rel), 250 MG PO DAILY Divalproex Sodium (Depakote Delay Rel), 500 MG PO BID Fluoxetine (Prozac), 40 MG PO QPM Levetiracetam (Keppra), 500 MG PO BID Lisinopril (Lisinopril), 5 MG PO DAILY Mirtazapine (Remeron), 15 MG PO HS Propranolol (Inderal), 10 MG PO TID Sulfa/Trimethoprim (Bactrim Ds 800MG/160MG), 1 TAB PO BID Topiramate (Topamax), 200 MG PO BID Scheduled PRN Acetaminophen Tab (Tylenol), 650 MG PO BID PRN for Pain Bacitracin/Polymyxin B (Polysporin), 1 GM TOP DAILY PRN for LEFT 3RD FINGER Allergies Coded Allergies: No Known Allergies (Unverified , 03/03/17) Physical Exam Vital Signs Date Time Temp Pulse Resp B/P (MAP) Pulse Ox O2 Delivery O2 Flow Rate FiO2 03/06/17 20:47 81 20 113/60 99 Room Air 03/06/17 19:39 36.9 93 16 131/115 100 Room Air Physical Exam CONSTITUTIONAL/VITAL SIGNS: Reviewed / noted above. GENERAL: Non-toxic in appearance. INTEGUMENTARY: Warm, dry, and [place]. HEAD: Normocephalic. EYES: without scleral icterus or trauma. ENT/OROPHARYNX: clear and moist. No injury to the tongue. LYMPHADENOPATHY/NECK: Is supple without lymphadenopathy or meningismus. RESPIRATORY: Lungs clear and equal. CARDIOVASCULAR: Regular rate and rhythm. GI/ABDOMEN: Soft and nontender. No organomegaly or pulsatile mass. No rebound or guarding. Normal bowel sounds. EXTREMITIES: Warm and well perfused. BACK: No CVA tenderness. NEUROLOGICAL: Intact without focal deficits. PSYCHIATRIC: normal affect. MUSCULOSKELETAL: Normally developed with good muscle tone. Medical Decision & Procedures ED Course 1944: Previous medical records were reviewed. The patient was evaluated in room B2. A complete history and physical examination was performed. 2229: Reassessed the patient. Discussed the discharge instructions. She verbalized understanding. The patient is ready for discharge. Medical Decision Differential diagnosis: Etiologies such as infection, hypoglycemia, electrolyte abnormalities, cardiac sources, intracerebral event, trauma, toxicologic, neurologic, as well as others were entertained. Patient was found to have a slightly elevated blood pressure due to circumstances. I do not believe that the patient requires hypertension monitoring. Medication Reconciliation: I attest that I have personally reviewed the patient' s current medication list. This is a 21-year-old female who presents to the ED with a chief complaint of seizure. The patient was discharged from [facility] today for seizures. The patient had a reported tonic-clonic seizure and was brought here for evaluation. On my evaluation, the patient is awake, alert and oriented. She did not bite her tongue. There is no incontinence. She has no evidence of injury. Paperwork from [facility] was reviewed. The principle diagnosis was psychogenic nonepileptic seizures. The patient was felt to be stable for discharge and outpatient follow-up. Impression Primary Impression: Psychogenic nonepileptic seizure Scribe Attestation The scribe's documentation has been prepared under my direction and personally reviewed by me in its entirety. I confirm that the note above accurately reflects all work, treatment, procedures, and medical decision making performed by me. Departure Information Dispostion Home / Self-Care Referrals [facility] (PCP) Forms HOME CARE DOCUMENTATION FORM, IMPORTANT VISIT INFORMATION Patient Instructions My [facility] Additional Instructions Your seizure activity is felt to be psychogenic in nature. Should you have a seizure, rest and if you are concerned about injuries, return to the emergency department for evaluation. Otherwise, there is no need to return to the emergency department if you have seizure activity.
[2017-03-06 22:40] VITALS: BP 134/79; PULSE 90; O2SAT 99
== END 2017-03-06 22:50 ==
LOC: EDBD 19:34 → C.EDB 19:35
DX: F44.5 Conversion disorder with seizures or convulsions (principal); F39 Unspecified mood [affective] disorder; Z79.899 Other long term (current) drug therapy; F17.210 Nicotine dependence, cigarettes, uncomplicated

== ENCOUNTER 2017-03-28 05:24 | Emergency (ER) | payer OTHER ==
[~2017-03-28] VITALS: Ht 172.7 cm; Wt 132.0 kg
[~2017-03-28 05:24] MED LIST changes: +BACIOIN2 TOP
[2017-03-28 05:38] VITALS: TEMP 37; Ht 172.7 cm; Wt 132.0 kg
[2017-03-28] MEDS ORDERED: IBUPROFEN 600 MG TAB PO STA (06:13)
--- NOTE | 2017-03-28 06:13 | EMERGENCY ROOM VISIT NOTE ---
History Report prepared by Mark: Aaliyah Dorsey Under the Supervision of: Dr. Juventino Olivia D.O. First contact with patient: 05:25 Chief Complaint: FALL Stated Complaint: FALL History of Present Illness The patient is a 21 year old female who presents to the Emergency Room with complaints of a fall PHARMACIST MANAGER. The patient jumped from the top bunk of a bunk bed and hit her head on the floor or a table. She reports dental pain, jaw pain, and head pain. She indicates that she has pain in her right foot. She is able to walk. Her front teeth are chipped. She denies any neck pain. The history and physical is limited due to patient refusal. Source of History: patient, other (care home guar) History Limited By: other (refusal) Onset: PHARMACIST MANAGER Position: other (global) Quality: other (fall) Timing: other (episodic) Associated Symptoms: No neck pain Note: Pt reports dental pain, jaw pain, head pain, right foot pain. Review of Systems See HPI for pertinent positives & negatives. A total of 10 systems reviewed and were otherwise negative. Past Medical & Surgical Medical Problems: (1) Mood disorder (2) Seizure disorder Family History Patient reports no known family medical history. Social History Smoking Status: Current Every Day Smoker Drug Use: none Marital Status: single Housing Status: other (care home) Occupation Status: unemployed Current/Historical Medications Scheduled Cephalexin Monohydrate (Keflex), 500 MG PO QID Divalproex Sodium (Depakote Delay Rel), 250 MG PO DAILY Divalproex Sodium (Depakote Delay Rel), 500 MG PO BID Fluoxetine (Prozac), 40 MG PO QPM Levetiracetam (Keppra), 500 MG PO BID Lisinopril (Lisinopril), 5 MG PO DAILY Mirtazapine (Remeron), 15 MG PO HS Propranolol (Inderal), 10 MG PO TID Topiramate (Topamax), 200 MG PO BID Scheduled PRN Acetaminophen Tab (Tylenol), 650 MG PO BID PRN for Pain Bacitracin/Polymyxin B (Polysporin), 1 GM TOP DAILY PRN for LEFT 3RD FINGER Allergies Coded Allergies: No Known Allergies (Unverified , 03/28/17) Physical Exam Vital Signs Date Time Temp Pulse Resp B/P (MAP) Pulse Ox O2 Delivery O2 Flow Rate FiO2 03/28/17 07:17 74 20 124/71 100 03/28/17 05:38 37.0 87 20 138/83 100 Room Air Physical Exam GENERAL: Patient is awake, alert, very anxious and guarded appearing. EYES: The conjunctivae are clear. The pupils are round and reactive. EARS, NOSE, MOUTH AND THROAT: The nose is without any evidence of any deformity. Patient had pain with opening and closing of the mouth, no trismus appreciated, there was dental trauma noted in the front upper teeth with bleeding at the gumline appreciated, patient refused any other examination of the oropharynx. NECK: The neck is nontender and supple. RESPIRATORY: Normal respiratory effort is noted there is no evidence of wheezing rhonchi or rales CARDIOVASCULAR: Regular rate and rhythm noted there no murmurs rubs or gallops normal S1 normal S2 GASTROINTESTINAL: The abdomen is soft. Bowel sounds are present in all quadrants. Abdomen is nontender MUSCULOSKELETAL/EXTREMITIES: Patient points to dorsum of the right foot for pain. SKIN: There is no obvious evidence of any rash. There are no petechiae, pallor or cyanosis noted. NEUROLOGIC: Patient is baseline according to the care home guards. Medical Decision & Procedures ER Provider Diagnostic Interpretation: X-ray results as stated below per interpretation by me. Foot X-ray: No acute fracture, no malalignment, no acute disease CT the cervical spine, facial bones, and the head was obtained in the emergency department. The report reviewed. Preliminary Findings Only See Final Report For Complete Findings CT C SPINE: No acute fracture or traumatic malalignment. Reversal of the normal cervical lordosis, likely positional. Radiologist: Cong Hubbard MD Study ready at 06:12 and initial results transmitted at 06:16 Preliminary Findings Only See Final Report For Complete Findings CT HEAD: No acute intracranial abnormality. No acute calvarial abnormality. Minimal mucosal thickening of the paranasal sinuses. Radiologist: Cong Hubbard MD Study ready at 06:07 and initial results transmitted at 06:14 Preliminary Findings Only See Final Report For Complete Findings CT FACIAL: No facial bone fracture identified. Minimal mucosal thickening in the paranasal sinuses. The globes and orbits are intact. Radiologist: Cong Hubbard MD Study ready at 06:09 and initial results transmitted at 06:27 Medications Administered Medications (Trade) Dose Ordered Sig/David Route Start Time Stop Time Status Last Admin Dose Admin Ibuprofen (Motrin Tab) 600 mg NOW STAT PO 03/28/17 06:13 03/28/17 06:15 DC 03/28/17 06:25 600 MG Cephalexin Monohydrate (Keflex Cap) 500 mg NOW ONCE PO 03/28/17 06:15 03/28/17 06:16 DC 03/28/17 06:27 500 MG Cephalexin Monohydrate (Keflex 500MG Home Pack) 1 homepack NOW ONCE PO 03/28/17 06:15 03/28/17 06:16 DC 03/28/17 06:26 1 HOMEPACK ED Course 0531: The patient was evaluated in room B4B. A complete history and physical examination were performed. 0613: Ibuprofen 600 mg PO. 0615: Cephalexin Monohydrate 1 homepack PO, Keflex Cap 500 mg PO. 0636: I reevaluated the patient. I discussed the results and treatment plan with her and the care home guards. They verbalized agreement of the treatment plan. She was discharged to care home. Medical Decision Prior records/ancillary studies reviewed. Triage Nursing notes reviewed. Additional history obtained from care home guards. The patient's history was concerning for traumatic injury Differential diagnosis: Etiologies such as fracture, dislocation, intra-abdominal, pneumothorax, intrathoracic , intracranial, neurologic, as well as other traumatic pathologies were entertained. Medication Reconciliation: I attest that I have personally reviewed the patient' s current medications list. Blood pressure screening: Patient was found to have normal blood pressure on screening and does not require follow-up. The patient is a 21-year-old female who presented to the emergency department after a fall. The [facility]. The patient has extensive mental health problems and it does appear that she jumped out of the bed on purpose. The patient was very noncompliant with the history and physical because she is very guarded. The patient appeared to have dental trauma and may struck her head. I discussed the patient's radiographic studies with her as well as the guards from the corrections facility. She would not allow me to evaluate her teeth but the nursing staff was able to evaluate her dentition and she does have some fractured teeth especially in the upper front. They were loose but they were not in danger of falling out this time. I recommended expedited follow-up with the dental physician. Because of her current living situation this will have to come from the [facility]. She was encouraged to continue using Motrin and Tylenol for pain. She was started on antibiotics because of the dental trauma. She was encouraged to return to the emergency department immediately if symptoms change worsen or the need arises. Impression Primary Impression: Fall Additional Impressions: Head injury Facial contusion Dental trauma Foot contusion Scribe Attestation The scribe's documentation has been prepared under my direction and personally reviewed by me in its entirety. I confirm that the note above accurately reflects all work, treatment, procedures, and medical decision making performed by me. Departure Information Dispostion Home / Self-Care Prescriptions Cephalexin Monohydrate (KEFLEX) 500 Mg Cap 500 MG PO QID, #28 CAP Prov: Juventino Olivia, DO 03/28/17 Referrals [facility] (PCP) Forms HOME CARE DOCUMENTATION FORM, IMPORTANT VISIT INFORMATION Patient Instructions ED Contusion Face, ED Fx Tooth, My [facility] Additional Instructions Follow-up with the dentist as soon as possible. Continue using Motrin and Tylenol as directed for pain. I would recommend a soft or liquid diet until your cleared by the dentist. Problem Qualifiers Primary Impression: Fall Encounter type: initial encounter Qualified Codes: W19.XXXA - Unspecified fall, initial encounter Additional Impressions: Head injury Encounter type: initial encounter Qualified Codes: S09.90XA - Unspecified injury of head, initial encounter Facial contusion Encounter type: initial encounter Qualified Codes: S00.83XA - Contusion of other part of head, initial encounter Dental trauma Encounter type: initial encounter Qualified Codes: S09.93XA - Unspecified injury of face, initial encounter Foot contusion Encounter type: initial encounter Laterality: right Qualified Codes: S90.31XA - Contusion of right foot, initial encounter
[2017-03-28] MEDS ORDERED: CEPHALEXIN MONOHYDRATE 250 MG CAP PO ONE (06:15)
[2017-03-28] MEDS ORDERED: CEPHALEXIN 500MG HOME PACK 1 EA BTL PO ONE (06:15)
--- NOTE | 2017-03-28 06:37 | DIAGNOSTIC IMAGING REPORT ---
CT HEAD WITHOUT CONTRAST (CT) CLINICAL HISTORY: Head pain status post trauma COMPARISON STUDY: 03/03/2017 TECHNIQUE: Axial CT of the brain is performed from the vertex to the skull base. IV contrast was not administered for this examination. CT DOSE: FINDINGS: No intra or extra-axial mass lesions are visualized. There is no CT evidence of acute cortical infarction. There is no evidence of midline shift. There is no acute hemorrhage. No calvarial fractures are visualized. There is no evidence of pathologic ventricular dilatation. There is no evidence of acute sinusitis IMPRESSION: Normal noncontrast head CT. Electronically signed by: Ministerio Cowan M.D. 03/28/2017 6:36 AM Dictated Date/Time: 03/28/2017 6:35 AM
[2017-03-28] MEDS ORDERED: CEPH500C2 PO (06:50)
--- NOTE | 2017-03-28 06:54 | DIAGNOSTIC IMAGING REPORT ---
RIGHT FOOT MIN 3 VIEWS ROUTINE CLINICAL HISTORY: Right foot pain status post trauma COMPARISON: None. DISCUSSION: No acute fractures or dislocations are visualized. IMPRESSION: No fractures identified. Electronically signed by: Ministerio Cowan M.D. 03/28/2017 6:52 AM Dictated Date/Time: 03/28/2017 6:52 AM
--- NOTE | 2017-03-28 07:01 | DIAGNOSTIC IMAGING REPORT ---
CERVICAL SPINE W/O CT DOSE: 1165.64 mGy.cm HISTORY: 21-year-old female presents with acute head injury status post fall. The patient struck her face on a table after jumping from a pelvic bed. TECHNIQUE: Multiple axial CT images of the cervical spine were obtained without contrast. Coronal and sagittal reformatted images were obtained from the axial data set and submitted for review Comparison: Head CT of same day, cervical spine CT 03/03/2017. Findings: Vertebral body heights and alignment are normal. No fracture or subluxation is identifed. The intervertebral disc spaces are preserved. No significant central canal or neural foraminal stenosis is identified. There is reversal of the normal cervical lordosis with approximately 13 degrees kyphosis centered at the C5-C6 level. The cervical soft tissues appear unremarkable. The visualized lung apices appear clear. Impression: 1. No acute cervical spine fracture or dislocation. 2. Reversal of the normal cervical lordosis with 13 degrees kyphosis centered at C5-C6, may be secondary to patient positioning or paraspinal muscle spasm. The above report was generated using voice recognition software. It may contain grammatical, syntax or spelling errors. Electronically signed by: Myron Combs M.D. 03/28/2017 7:00 AM Dictated Date/Time: 03/28/2017 6:55 AM
--- NOTE | 2017-03-28 07:16 | DIAGNOSTIC IMAGING REPORT ---
CT FACIAL BONES-MXILLOFAC WITHOUT CT DOSE: CLINICAL HISTORY: Facial pain status post trauma COMPARISON STUDY: No previous studies for comparison. TECHNIQUE: Helical images were acquired in the transverse plane. The study was reviewed and analyzed on the independent 3-D workstation. The pterygoid plates appear intact. The zygomatic arches appear intact. The globes appear intact. There is no evidence of orbital emphysema. The orbital azevedo and floor appear intact. The mandibular condyles appear intact. There is pneumatization of both middle turbinates. There is mucosal disease within the frontal and ethmoid sinuses. IMPRESSION: No facial fractures identified. Electronically signed by: Ministerio Cowan M.D. 03/28/2017 7:15 AM Dictated Date/Time: 03/28/2017 7:13 AM
[2017-03-28 07:17] VITALS: BP 124/71; PULSE 74; O2SAT 100
== END 2017-03-28 07:17 | disposition home or self-care (01) ==
LOC: EDBD 05:24 → C.EDB 05:25
DX: S09.90XA Unspecified injury of head, initial encounter (principal); S00.83XA Contusion of other part of head, initial encounter; S09.93XA Unspecified injury of face, initial encounter; S90.31XA Contusion of right foot, initial encounter; W19.XXXA Unspecified fall, initial encounter; R56.9 Unspecified convulsions; F17.200 Nicotine dependence, unspecified, uncomplicated